=== PATIENT | female | born 1960 | race Caucasian/White ===

== ENCOUNTER 2017-08-06 19:14 | Emergency (ER) | payer BC, OTHER ==
[~2017-08-06] VITALS: Ht 170.2 cm; Wt 136.6 kg
[~2017-08-06 19:14] MED LIST: ASCO500T16 PO; ATV5 PO; CALCIUM + D600 M1 PO; CHOL100010 PO; IBUP200T52 PO; MULT-506 PO; OMEG-112 PO; RSTOPS OP
[2017-08-06 19:16] VITALS: TEMP 37; Ht 170.2 cm; Wt 136.6 kg
[2017-08-06 20:15] LABS: BASO % 0.3 %; BASO ABS # 0.03 K/uL (0-0.2); COMPLETE YES; EOS % 2.4 %; HEMATOCRIT 46.4 % (37-47); IG% 0.2 %; LYMPH % 23.9 %; MEAN CELL VOLUME 90.6 fL (80-100); MEAN CORPUSCULAR HEMOGLOBIN 30.5 pg (25-34); MEAN CORPUSCULAR HGB CONC 33.6 g/dl (32-36); MEAN PLATELET VOLUME 9.4 fL (7.4-10.4); MONO % 6.5 %; NEUT % 66.7 %; PLATELET COUNT 308 K/uL (130-400); RED BLOOD COUNT 5.12 M/uL (4.2-5.4); WHITE BLOOD COUNT 9.64 K/uL (4.8-10.8)
--- NOTE | 2017-08-06 20:15 | DIAGNOSTIC IMAGING REPORT ---
CHEST ONE VIEW PORTABLE CLINICAL HISTORY: Atypical chest pain COMPARISON STUDY: May 24, 2010 FINDINGS: The cardiac and mediastinal contours are normal. There is no evidence of focal pulmonary consolidation. There is no evidence of failure. No pleural effusions are visualized.[ IMPRESSION: No active disease in the chest. Electronically signed by: Gaurav Pittman M.D. 08/06/2017 8:13 PM Dictated Date/Time: 08/06/2017 8:13 PM
[2017-08-06] MEDS ORDERED: ATV5X PO (20:20)
[2017-08-06] MEDS ORDERED: CYCL0.052 OPB (20:20)
[2017-08-06] MEDS ORDERED: ASPI81TA28 PO (20:21)
[2017-08-06] MEDS ORDERED: CLBCR60 TOP (20:21)
[2017-08-06 20:26] LABS: POINT OF CARE TROPONIN I < 0.030 ng/ml (0-0.045)
[2017-08-06 20:28] LABS: PARTIAL THROMBOPLASTIN RATIO 0.9; PROTHROMBIN TIME (PATIENT) 10.4 SECONDS (9.0-12.0)
[2017-08-06 20:34] LABS: BUN/CREATININE RATIO 20.6 (10-20); CALCIUM 9.3 mg/dl (8.5-10.1); CREATININE 0.9 mg/dl (0.60-1.20); POTASSIUM 3.8 mmol/L (3.5-5.1)
[2017-08-06 20:36] LABS: ALB/GLOB RATIO 0.9 (0.9-2)
[2017-08-06] MEDS ORDERED: OPTIRAY 320 IV PRN (20:45)
[2017-08-06 21:15] VITALS: BP 149/89; PULSE 90; O2SAT 95
--- NOTE | 2017-08-06 21:18 | DIAGNOSTIC IMAGING REPORT ---
CT ANGIOGRAM OF THE CHEST CLINICAL HISTORY: Atypical chest pain COMPARISON STUDY: 03/01/2010 TECHNIQUE: Following the IV administration of 120 mL of Optiray-320, CT angiogram of the thorax was performed from the thoracic inlet to the lung bases utilizing the pulmonary embolus protocol. Images are reviewed in the axial, sagittal, and coronal planes. IV contrast was administered without complication. MIP imaging was performed. A dose lowering technique was utilized adhering to the principles of ALARA. CT DOSE: 745.70 mGy.cm FINDINGS: There is an 11 mm left lobe thyroid nodule. No pathologically enlarged axillary mediastinal or hilar lymph nodes were visualized. There was no evidence of thoracic aortic dilatation. There were no pulmonary artery filling defects to indicate acute pulmonary embolism. No pleural effusions are visualized. There is no evidence of focal pulmonary consolidation. There are few tiny granulomatous calcifications present. IMPRESSION: 1. No evidence of acute pulmonary embolism 2. No evidence of pathologic adenopathy 3. No evidence of focal pulmonary consolidation 4. 11 mm left lobe thyroid nodule Electronically signed by: Gaurav Pittman M.D. 08/06/2017 9:16 PM Dictated Date/Time: 08/06/2017 9:13 PM
--- NOTE | 2017-08-06 21:33 | EMERGENCY ROOM VISIT NOTE ---
History First contact with patient: 19:31 Chief Complaint: CHEST PAIN Stated Complaint: CHEST PAIN,COUGH Nursing Triage Summary: Pt states cough for about a year, now having pain with coughing and deep breaths, Lungs CTA, pain a 7 out of 10 with coughing and deep breaths, abd obese, positve pulses History of Present Illness The patient is a 57 year old female who presents to the Emergency Room with complaints of right-sided rib/back pain. The patient states that she has had pain in her right side for the past one month. She states that when she takes a deep breath, it makes her cough. The pain radiates from the right back into the right flank. She also has had a burning sensation in the right side of her chest this week. She denies shortness of breath, but does state it is difficult to take a deep breath. She saw her primary care provider marlene and they recommended that she come here to rule out a pulmonary embolism. She denies any history of blood clots. She is not a smoker. She denies any hormone replacement. She denies recent travel. She has had some cramping in both of the legs, but denies any unilateral leg pain/swelling. She rates her overall discomfort a 6/10. She denies any abdominal pain, nausea, vomiting or fevers. Review of Systems A complete 10 point review of systems was reviewed with the patient with pertinent positives and negatives as per history of present illness. All else were negative. Social History Smoking Status: Never Smoker Current/Historical Medications Scheduled , 600 MG PO QAM Aspirin (Aspirin Ec), 81 MG PO HS Cholecalciferol (Vitamin D), 1,000 INTER.UNIT PO QAM Clobetasol Propionate (Clobetasol Propionate), 1 DOSE TOP HS Cyclosporine (Ophth) (Restasis), 1 DROP OPB BID Ibuprofen (Advil), 1 TAB PO HS Lorazepam (Lorazepam), 0.5 MG PO HS Multivitamin (Multivitamin), 1 TAB PO QAM Physical Exam Vital Signs Date Time Temp Pulse Resp B/P (MAP) Pulse Ox O2 Delivery O2 Flow Rate FiO2 08/06/17 21:15 90 18 149/89 95 Room Air 08/06/17 19:42 136/76 08/06/17 19:34 96 08/06/17 19:26 96 18 162/76 96 Room Air 08/06/17 19:26 Room Air 08/06/17 19:16 37.0 92 18 177/82 94 Room Air Physical Exam VITALS: Vitals are noted on the nurse's note and reviewed by myself. Vital signs stable. GENERAL: This is a 57-year-old female, in no acute distress, nondiaphoretic, well-developed well-nourished. SKIN: No rashes noted. HEENT: Normocephalic. PERRLA. Mucous membranes moist. Neck is supple without nuchal rigidity. HEART: Regular rate and rhythm without murmurs gallops or rubs. LUNGS: Clear to auscultation bilaterally without wheezes, rales or rhonchi. No retractions or accessory muscle use. ABDOMEN: Positive bowel sounds x 4. No tenderness to palpation. NEURO: Patient was alert and oriented to person place and time. Medical Decision & Procedures ER Provider Diagnostic Interpretation: CHEST ONE VIEW PORTABLE FINDINGS: The cardiac and mediastinal contours are normal. There is no evidence of focal pulmonary consolidation. There is no evidence of failure. No pleural effusions are visualized.[ IMPRESSION: No active disease in the chest. CT ANGIOGRAM OF THE CHEST FINDINGS: There is an 11 mm left lobe thyroid nodule. No pathologically enlarged axillary mediastinal or hilar lymph nodes were visualized. There was no evidence of thoracic aortic dilatation. There were no pulmonary artery filling defects to indicate acute pulmonary embolism. No pleural effusions are visualized. There is no evidence of focal pulmonary consolidation. There are few tiny granulomatous calcifications present. IMPRESSION: 1. No evidence of acute pulmonary embolism 2. No evidence of pathologic adenopathy 3. No evidence of focal pulmonary consolidation 4. 11 mm left lobe thyroid nodule Laboratory Results 08/06/17 20:00 Red Blood Count 5.12, Mean Corpuscular Volume 90.6, Mean Corpuscular Hemoglobin 30.5, Mean Corpuscular Hemoglobin Concent 33.6, Mean Platelet Volume 9.4, Neutrophils (%) (Auto) 66.7, Lymphocytes (%) (Auto) 23.9, Monocytes (%) (Auto) 6.5, Eosinophils (%) (Auto) 2.4, Basophils (%) (Auto) 0.3, Neutrophils # (Auto) 6.43, Lymphocytes # (Auto) 2.30, Monocytes # (Auto) 0.63, Eosinophils # (Auto) 0.23, Basophils # (Auto) 0.03 08/06/17 20:00 Test 08/06/17 20:00 08/06/17 20:08 White Blood Count 9.64 K/uL (4.8-10.8) Red Blood Count 5.12 M/uL (4.2-5.4) Hemoglobin 15.6 g/dL (12.0-16.0) Hematocrit 46.4 % (37-47) Mean Corpuscular Volume 90.6 fL (80-100) Mean Corpuscular Hemoglobin 30.5 pg (25-34) Mean Corpuscular Hemoglobin Concent 33.6 g/dl (32-36) Platelet Count 308 K/uL (130-400) Mean Platelet Volume 9.4 fL (7.4-10.4) Neutrophils (%) (Auto) 66.7 % Lymphocytes (%) (Auto) 23.9 % Monocytes (%) (Auto) 6.5 % Eosinophils (%) (Auto) 2.4 % Basophils (%) (Auto) 0.3 % Neutrophils # (Auto) 6.43 K/uL (1.4-6.5) Lymphocytes # (Auto) 2.30 K/uL (1.2-3.4) Monocytes # (Auto) 0.63 K/uL (0.11-0.59) Eosinophils # (Auto) 0.23 K/uL (0-0.5) Basophils # (Auto) 0.03 K/uL (0-0.2) RDW Standard Deviation 44.1 fL (36.4-46.3) RDW Coefficient of Variation 13.3 % (11.5-14.5) Immature Granulocyte % (Auto) 0.2 % Immature Granulocyte # (Auto) 0.02 K/uL (0.00-0.02) Prothrombin Time 10.4 SECONDS (9.0-12.0) Prothromb Time International Ratio 1.0 (0.9-1.1) Activated Partial Thromboplast Time 24.1 SECONDS (21.0-31.0) Partial Thromboplastin Ratio 0.9 Anion Gap 6.0 mmol/L (3-11) Est Creatinine Clear Calc Drug Dose 97.3 ml/min Estimated GFR () 81.1 Estimated GFR (Non- 70.0 BUN/Creatinine Ratio 20.6 (10-20) Calcium Level 9.3 mg/dl (8.5-10.1) Total Bilirubin 0.8 mg/dl (0.2-1) Aspartate Amino Transf (AST/SGOT) 63 U/L (15-37) Alanine Aminotransferase (ALT/SGPT) 111 U/L (12-78) Alkaline Phosphatase 117 U/L (45-117) Total Protein 7.5 gm/dl (6.4-8.2) Albumin 3.5 gm/dl (3.4-5.0) Globulin 4.0 gm/dl (2.5-4.0) Albumin/Globulin Ratio 0.9 (0.9-2) Bedside D-Dimer > 450 ng/mlFEU (0-450) Bedside Troponin I < 0.030 ng/ml (0-0.045) ECG Indication: chest pain Rate (beats per minute): 90 Rhythm: normal sinus Findings: no acute ischemic change, no ectopy ED Course The patient was evaluated as above. Labs were drawn and IV access was obtained. CT chest was performed and read by radiology as above. Patient was reevaluated and findings were discussed. Discharge instructions were reviewed with the patient. The patient verbalized understanding of my assessment and treatment plan and was discharged home in good condition. Medical Decision Differential diagnosis includes acute coronary syndrome, pulmonary embolism, pneumothorax, pericarditis, myocarditis, endocarditis, anxiety, musculoskeletal pain, GERD, costochondritis, pneumonia, among others. The patient is a 57-year-old female who presents today complaining of right sided rib/chest pain for the past one year. Labs revealed no leukocytosis, anemia, or concerning electrolyte abnormalities. D-dimer was elevated, and CT of the chest was ordered. This was read by radiology with no PEs identified. Troponin was not elevated. EKG was unremarkable. Patient was referred back to her PCP for further evaluation of her rib pain. She was agreeable to the treatment plan. Based on the patient's presentation and work up, I feel the patient is stable for outpatient treatment. The patient was educated to return to the emergency department for any worsening of their current condition or new/concerning symptoms. She will follow up with her PCP. Medication Reconcilliation Current Medication List: was personally reviewed by me Blood Pressure Screening Patient's blood pressure: Elevated blood pressure Blood pressure disposition: Elevated BP felt to be situational Impression Primary Impression: Rib pain on right side Departure Information Dispostion Home / Self-Care Condition GOOD Referrals Parish Perez PA-C (PCP) Patient Instructions My [facility] [place] Additional Instructions CT showed no evidence of a blood clot in the lungs. For pain control, you can use the following [id number] medicines (if >12 yo): - Regular strength (325mg/tab) Tylenol (acetaminophen) 2 tabs every 4-6 hours as needed. Do not exceed 12 tablets in a 24 hour period. Avoid taking more than 4 grams (4000 mg) of Tylenol per day. This includes any other sources of acetaminophen you may take on a regular basis. - Regular strength (200 mg/tab) Advil (ibuprofen) 1-2 tabs every 4-6 hours as needed. Do not exceed a dose of 3200 mg per day. You may use [id number] medications for the cough. Follow-up with your primary care provider. Call in the morning for an appointment. Return to the emergency department with any worsening or new/concerning symptoms.
== END 2017-08-06 21:50 | disposition home or self-care (01) ==
LOC: C.EDB 19:16 → C.EDC 21:50
DX: R07.81 Pleurodynia (principal); Z79.82 Long term (current) use of aspirin

== ENCOUNTER 2022-07-25 19:20 | Inpatient (IN) ==
[2022-07-25] MEDS ORDERED: MoRPHine SULFATE 4 MG/ML 1 ML CARP\\VIAL IV STA ×2 (22:29→22:30)
[2022-07-25] MEDS ORDERED: LORazepam 2 MG/1 ML VIAL IV STA (22:42)
[2022-07-25] MEDS ORDERED: KETOROLAC TROMETHAMINE 15 MG/ML VIAL IV STA (22:42)
[2022-07-25 23:14] LABS: Alanine Aminotransferase 43 U/L (7-52); Albumin Globulin Ratio 1.4 (0.9-2); Albumin Level 3.9 gm/dl (3.4-5.0); Alkaline Phosphatase 97 U/L (34-104); Anion Gap 9 (3-11); Aspartate Aminotransferase 22 U/L (13-39); BUN Creatinine Ratio 40.6 (10-20); Bilirubin,Total 0.8 mg/dl (0.2-1.0); Blood Urea Nitrogen 28 mg/dl (6-23); Calcium 9.4 mg/dl (8.5-10.1); Carbon Dioxide 27 mmol/L (21-32); Chloride 105 mmol/L (98-107); Est GFR (African American) 106.6 ml/min; Globulin 2.7 gm/dl (2.5-4.0); Glucose 80 mg/dl (70-99(Fasting)); Potassium 4.2 mmol/L (3.5-5.1); Sodium 141 mmol/L (136-145); Total Protein 6.6 gm/dl (6.0-8.3)
[2022-07-25 23:21] LABS: Hematocrit (blood only) 45.8 % (34.1-44.9); Hemoglobin 14.4 g/dl (12.0-16.0); Lymphocytes % (auto) 20.4 %; Mean Corpuscular Hemoglobin 29.9 pg (25.0-34.0); Mean Corpuscular Hgb Conc 31.4 g/dL (32.0-36.0); Mean Platelet Volume 9.3 fL (9.4-12.3); Monocytes % (auto) 9.9 %; Neutrophils % (auto) 68.4 %; Platelet Count 265 K/uL (130-400); RDW Coefficient of Variation 13.2 % (11.5-14.5); RDW Standard Deviation 46.2 fL (36.4-46.3); Red Blood Count 4.82 M/uL (3.93-5.22); White Blood Count 12.26 K/ul (4.8-10.8)
[2022-07-25 23:22] LABS: Basophils # (auto) 0.02 K/uL (0-0.2); Basophils % (auto) 0.2 %; Eosinophils # (auto) 0.06 K/uL (0-0.50); Eosinophils % (auto) 0.5 %; Immature Granulocytes # (auto) 0.07 K/uL (0.00-0.02); Immature Granulocytes % (auto) 0.6 %; Monocytes # (auto) 1.21 K/uL (0.24-0.82)
--- NOTE | 2022-07-25 23:24 | Emergency Department Note ---
History of Present Illness General Chief complaint: Back Injury/Pain Stated complaint: BACK PAIN Time Seen by Provider: 07/25/22 22:27 History of Present Illness Maximum Pain Intensity: 8 This 62-year-old presents to the ER complaining of worsening low back pain that radiate down her right leg that feels weak Location: Low back Quality: Severe Severity: Severe Duration: Past few weeks Timing: Started few weeks ago Context: Symptoms got much worse and patient came in Modifying factors: better with rest; worse with activity Patient states her right leg now feels weak. She has difficulty wiping her bottom. Patient denies loss of bowel bladder control, saddle esthesia, fever, chills, IV drug abuse. No recent MRI. She seen Dr. Cool once. She seen pain management for SI problems. Home Medications Medication Instructions Recorded Confirmed Type ascorbic acid (vitamin C) 500 mg 1 cap PO .TAKE 1 CAPSULE DAILY. 06/12/20 08/14/20 History capsule calcium carbonate 600 mg calcium mg PO .TAKE 1 TABLET TWICE DAILY. 06/12/20 08/14/20 History (1,500 mg) tablet cholecalciferol (vitamin D3) 125 1 PO .TAKE 1 CAPSULE DAILY. 06/12/20 08/14/20 History mcg (5,000 unit) capsule cyclosporine 0.05 % eye drops in a 1 ophthalmic (eye) .INSTILL 1 DROP 06/12/20 08/14/20 History dropperette IN EACH EYE TWICE DAILY. docusate sodium 100 mg tablet mg PO .TAKE 1 TABLET DAILY 06/12/20 08/14/20 History DIRECTED. lorazepam 0.5 mg tablet mg PO .TAKE ONE TABLET BY MOUTH AT 06/12/20 08/14/20 History BEDTIME aspirin 81 mg tablet,delayed 81 mg PO DAILY 08/14/20 08/14/20 History release doxycycline hyclate 100 mg capsule 100 mg PO DAILY #30 caps 08/14/20 08/14/20 Rx metronidazole 0.75 % topical cream 1 applic topical BID #45 grams 08/14/20 08/14/20 Rx multivitamin (Daily Multi-Vitamin 1 tab PO DAILY 08/14/20 08/14/20 History tablet) cyclobenzaprine 10 mg tablet 10 mg PO TID PRN muscle spasm #20 07/23/22 Rx tabs hydrocodone 5 mg-acetaminophen 325 1 - 2 tab PO Q6H PRN pain #24 tabs 07/23/22 Rx mg tablet Allergies Allergy/AdvReac Type Severity Reaction Status Date / Time adhesive Allergy Mild RASH Verified 08/14/20 09:48 erythromycin base Allergy Mild RASH Verified 08/14/20 09:48 codeine Allergy Unknown WELTS AND Verified 08/14/20 09:48 ITCHING latex Allergy Unknown WELTS, Verified 08/14/20 09:48 BLISTERS tetanus toxoid, adsorbed Allergy Unknown CELLULITIS Verified 08/14/20 09:48 AND HYPERTENSION SHINGLES VACCINE Allergy Unknown CELLULITIS Uncoded 06/12/20 09:55 AND HYPERTENSION Past Med/Surg History Medical History (Updated 07/26/22 @ 03:16 by Marissa Minor PA-C) Diverticulitis GERD (gastroesophageal reflux disease) Meniere's disease Morbid obesity Osteoporosis Surgical History (Updated 07/25/22 @ 23:22 by Marissa Minor PA-C) No pertinent past surgical history Social History Smoking Status: Never smoker Preferred Language: Setswana Feels Safe at Home: Yes Review of Systems A total of 10 systems reviewed and were otherwise negative Physical Exam Vital Signs Vital Signs - 24 hr 07/25/22 19:27 07/25/22 20:45 07/25/22 22:45 Temperature 36.8 C Temperature Source Oral Pulse Rate 83 Pulse Rate [Apical] 72 81 Pulse Rhythm [Apical] Respiratory Rate 20 18 18 Respiratory Effort / Characteristics Non-Labored Spontaneous Non-Labored Spontaneous Respiratory Depth Normal Normal Respiratory Pattern Regular Regular Blood Pressure 210/91 H Blood Pressure [Right Arm] 159/83 H 167/91 H Blood Pressure Mean 130 Blood Pressure Mean [Right Arm] 108 116 Blood Pressure Position Semi-fowlers Blood Pressure Position [Right Arm] Semi-fowlers Pulse Oximetry 95 96 93 Oxygen Delivery Method Room Air Room Air Room Air Oxygen Flow Rate Sepsis Recent Fever Within 48 Hours No Sepsis New/Unexplained Change in Mental Status N/A Sepsis Action Taken by Nursing No Action Required 07/26/22 00:45 07/26/22 02:24 Temperature Temperature Source Pulse Rate Pulse Rate [Apical] 76 76 Pulse Rhythm [Apical] Regular Respiratory Rate 16 20 Respiratory Effort / Characteristics Non-Labored Spontaneous Non-Labored Spontaneous Respiratory Depth Normal Normal Respiratory Pattern Regular Regular Blood Pressure Blood Pressure [Right Arm] 174/84 H 146/72 H Blood Pressure Mean Blood Pressure Mean [Right Arm] 114 96 Blood Pressure Position Blood Pressure Position [Right Arm] Semi-fowlers Pulse Oximetry 95 98 Oxygen Delivery Method Nasal Cannula Nasal Cannula Oxygen Flow Rate 2 2 Sepsis Recent Fever Within 48 Hours Sepsis New/Unexplained Change in Mental Status Sepsis Action Taken by Nursing VITALS: Vitals are noted on the nurse's note and reviewed by myself. Vital signs stable. GENERAL: Pleasant patient who appears in pain, in no acute distress, nondiaphoretic, well-developed well-nourished. SKIN: The skin was without rashes, erythema, edema, or bruising. There is no tenting of the skin. Capillary reflex less than 2 seconds. HEAD: Normocephalic atraumatic. EARS: External auditory canals clear, EYES: Pupils equal round and reactive to light and accommodation. Conjunctivae without injection, sclerae without icterus. Extraocular movements intact. NOSE: Patent, turbinates without inflammation or discharge. MOUTH: Mucous membranes moist. Pharynx without erythema or exudate. Uvula midline. Airway patent. Tongue does not deviate. NECK: Supple without nuchal rigidity. No lymphadenopathy. No thyromegaly. Cervical spine is nontender. No JVD. HEART: Regular rate and rhythm without murmurs gallops or rubs. LUNGS: Clear to auscultation bilaterally without wheezes, rales or rhonchi. No retractions or accessory muscle use. ABDOMEN: Positive bowel sounds x 4. Normal tympanic percussion. Soft, nonten darline, without masses or organomegaly. Alanis sign negative. No guarding or rebound tenderness. No CVA tenderness MUSCULOSKELETAL: No muscle atrophy, erythema, or edema noted. No thoracic or lumbar tenderness. Positive straight leg raise on the right. Negative on the left. Patellar reflexes intact. Patient can plantarflex and dorsiflex. NEURO: Patient was alert and oriented to person place and time. Normal sensation to light and sharp touch. No focal neurological deficits. Course Administered Medications Discontinued Medications Ketorolac Tromethamine (Ketorolac Tromethamine 15 Mg/Ml Vial) 10 mg IV NOW STA Stop: 07/25/22 22:43 Last Admin: 07/25/22 23:17 Dose: 10 mg Documented By: JESUS ALBERTO Lorazepam (Lorazepam 2 Mg/1 Ml Vial) 1 mg IV NOW STA; Protocol Stop: 07/25/22 22:43 Last Admin: 07/25/22 23:18 Dose: 1 mg Documented By: JESUS ALBERTO Morphine Sulfate (Morphine Sulfate 4 Mg/Ml 1 Ml Carp\Vial) 4 mg IV NOW STA Stop: 07/25/22 22:30 Last Admin: 07/25/22 22:34 Dose: 4 mg Documented By: JESUS ALBERTO Morphine Sulfate (Morphine Sulfate 4 Mg/Ml 1 Ml Carp\Vial) 4 mg IV NOW STA Stop: 07/25/22 22:31 Last Admin: 07/25/22 22:35 Dose: Not Given Documented By: JESUS ALBERTO Morphine Sulfate (Morphine Sulfate 4 Mg/Ml 1 Ml Carp\Vial) 4 mg IV NOW STA Stop: 07/26/22 01:05 Last Admin: 07/26/22 01:07 Dose: 4 mg Documented By: JESUS ALBERTO Medical Decision Making Medical Records Attestation: I reviewed the patient's medical records. Home Medications Current Medication List: was personally reviewed by me Laboratory Data Attestation: I reviewed the patient's lab results. Result diagrams: 07/25/22 23:09 07/25/22 19:30 Lab Results 07/25/22 07/25/22 07/25/22 Range/Units 19:30 19:30 23:09 WBC Cancelled 12.26 H RBC Cancelled 4.82 Hgb Cancelled 14.4 Hct Cancelled 45.8 H MCV Cancelled 95.0 MCH Cancelled 29.9 MCHC Cancelled 31.4 L RDW Std Deviation Cancelled 46.2 RDW Coeff of Jose Antonio Cancelled 13.2 Plt Count Cancelled 265 MPV Cancelled 9.3 L Immature Gran % (Auto) Cancelled 0.6 Neut % (Auto) Cancelled 68.4 Lymph % (Auto) Cancelled 20.4 [place] % (Auto) Cancelled 9.9 Eos % (Auto) Cancelled 0.5 Baso % (Auto) Cancelled 0.2 Neut # (Auto) Cancelled 8.40 H Lymph # (Auto) Cancelled 2.50 [place] # (Auto) Cancelled 1.21 H Eos # (Auto) Cancelled 0.06 Baso # (Auto) Cancelled 0.02 Immature Gran # (Auto) Cancelled 0.07 H Absolute Nucleated RBC Cancelled Nucleated RBC % (auto) Cancelled Neutrophils % (Manual) Cancelled Band Neutrophils % Cancelled Lymphocytes % (Manual) Cancelled Prolymphocyte % Cancelled Reactive Lymphs % (Man) Cancelled Monocytes % (Manual) Cancelled Eosinophils % (Manual) Cancelled Basophils % (Manual) Cancelled Metamyelocytes % (Man) Cancelled Myelocytes % (Man) Cancelled Promyelocytes % (Man) Cancelled Blast Cells % (Manual) Cancelled Plasma Cell % (Manual) Cancelled Other Cells % Cancelled Nucleated RBC % Cancelled Neutrophils # (Manual) Cancelled Band Neutrophils # Cancelled Total Absolute Neuts Cancelled Lymphocytes # (Manual) Cancelled Prolymphocyte # Cancelled Reactive Lymphs # Cancelled Total Abs Lymphocytes Cancelled Monocytes # (Manual) Cancelled Eosinophils # (Manual) Cancelled Basophils # (Manual) Cancelled Metamyelocytes # (Man) Cancelled Myelocytes # (Manual) Cancelled Promyelocytes # (Man) Cancelled Blast Cells # (Man) Cancelled Plasma Cell # (Manual) Cancelled Other Cells # Cancelled Nucleated RBCs # (Man) Cancelled Hypersegmented Neuts Cancelled Hyposegmented Neuts Cancelled Hypogranular Neuts Cancelled Large Granular Lymphs Cancelled # Lrg Granular Lymphs Cancelled Hairy Cells Cancelled Smudge Cells Cancelled Toxic Granulation Cancelled Toxic Vacuolation Cancelled Dohle Bodies Cancelled Dylon Rods Cancelled Platelet Estimate Cancelled Hypogranular Platelets Cancelled Clumped Platelets Cancelled Giant Platelets Cancelled Platelet Satelliting Cancelled RBC Morphology Cancelled Polychromasia Cancelled Hypochromasia Cancelled Poikilocytosis Cancelled Basophilic Stippling Cancelled Anisocytosis Cancelled Microcytosis Cancelled Macrocytosis Cancelled Spherocytes Cancelled Pappenheimer Bodies Cancelled Sickle Cells Cancelled Target Cells Cancelled Tear Drop Cells Cancelled Ovalocytes Cancelled Stomatocytes Cancelled [place] Bodies Cancelled Echinocytes Cancelled Acanthocytes (Spur) Cancelled Rouleaux Cancelled RBC Agglutinates Cancelled Schistocytes Cancelled [place] Cell Cancelled Sodium 141 (136-145) mmol/L Potassium 4.2 (3.5-5.1) mmol/L Chloride 105 (98-107) mmol/L Carbon Dioxide 27 (21-32) mmol/L Anion Gap 9 (3-11) BUN 28 H (6-23) mg/dl Creatinine 0.69 (0.6-1.2) mg/dl Est Cr Clr Drug Dosing Not Reportable Est GFR ( Amer) 106.6 ml/min Est GFR (Non-Af Amer) 92.0 ml/min BUN/Creatinine Ratio 40.6 H (10-20) Glucose 80 (70-99(Fasting)) mg/dl Calcium 9.4 (8.5-10.1) mg/dl Total Bilirubin 0.8 (0.2-1.0) mg/dl AST 22 (13-39) U/L ALT 43 (7-52) U/L Alkaline Phosphatase 97 (34-104) U/L Total Protein 6.6 (6.0-8.3) gm/dl Albumin 3.9 (3.4-5.0) gm/dl Globulin 2.7 (2.5-4.0) gm/dl Albumin/Globulin Ratio 1.4 (0.9-2) Blood Parasites ID Cancelled Imaging Data Attestation: I personally reviewed and interpreted this imaging study as follows: MDM Narrative Prior records/ancillary studies reviewed. Triage Nursing notes reviewed. Additional history obtained from family. The patient's history was concerning for back pain. Differential diagnosis: Etiologies such as musculoskeletal, disc herniation, fracture, aortic disease, metastatic disease, cord compression, discitis, infection, renal colic, gastrointestinal, acute exacerbation of chronic back pain, sciatica, cauda equina, as well as others were entertained. Physical findings: As above. No focal neurologic findings noted. ER treatment provided: Morphine, Ativan, Tylenol, Toradol On reassessment the patient felt better. Diagnostics interpreted by me: The labs revealed leukocytosis most likely from prednisone use Imaging studies: MRI L SPINE : Acute moderate L2 compression fracture with a small amount of prevertebral blood. Chronic minimal L1 compression fracture. No malalignment. Minimal degenerative changes of the spine without significant stenosis. No abnormal spinal cord signal. Radiologist: Evy Wilkinson MD Consultation: A consultation was placed with hospitalist. The case was discussed and diagnostics were reviewed. They will evaluate for possible admission. This appears to be consistent with compression fracture with intractable back pain. Patient's received multiple rounds of pain meds. She still moderate amount of pain. Medicine is consulted. She will be evaluated for possible admission. By the evaluation outlined above emergent etiologies such as aortic disease, metastatic disease, infection, renal colic, gastrointestinal, cord compression, cauda equina, as well as others were deemed relatively unlikely. The pt informed about the findings as listed above. All questions were answered and pleased with the treatment. The chart was completed utilizing MD[employer]Voice Speech voice recognition software. Grammatical errors, random word insertions, pronoun errors, and incomplete sentences are an occassional consequence of this system due to software limitations, ambient noise, and hardware issues. Any formal questions or concerns about the content, text, or information contained within the body of this dictation should be directly addressed to the physician assistant department manager for clarification. Impression & Plan Closed compression fracture of L2 vertebra, Intractable low back pain Discharge Plan Visit Data Chief Complaint: Back Injury/Pain Stated Complaint: BACK PAIN ED Provider: Mir Rendon ED Midlevel Provider: Marissa Minor Discharge Problem: Closed compression fracture of L2 vertebra, Intractable low back pain Patient Disposition: Being Evaluated by Hospitalist Condition: Good Forms Stand Alone Forms: [facility] [email or web address] Prescriptions Prescriptions: No Action multivitamin [Daily Multi-Vitamin] Tablet 1 tab PO DAILY aspirin 81 mg tablet,delayed release (DR/EC) 81 mg PO DAILY metronidazole 0.75 % cream 1 applic TOP BID Qty: 45 2RF Rx Instructions: Apply to face twice daily as directed. doxycycline hyclate 100 mg capsule 100 mg PO DAILY Qty: 30 2RF Rx Instructions: Take 1 pill once daily with a glass of water. Remain upright for 45 minutes after taking. calcium carbonate 600 mg calcium (1,500 mg) tablet PO .TAKE 1 TABLET TWICE DAILY. lorazepam 0.5 mg tablet PO .TAKE ONE TABLET BY MOUTH AT BEDTIME Restasis 0.05 % dropperette 1 OP .INSTILL 1 DROP IN EACH EYE TWICE DAILY. ascorbic acid (vitamin C) 500 mg capsule 1 cap PO .TAKE 1 CAPSULE DAILY. cholecalciferol (vitamin D3) 125 mcg (5,000 unit) capsule 1 PO .TAKE 1 CAPSULE DAILY. docusate sodium 100 mg tablet PO .TAKE 1 TABLET DAILY DIRECTED. cyclobenzaprine 10 mg tablet 10 mg PO TID PRN (Reason: muscle spasm) Qty: 20 0RF hydrocodone-acetaminophen 5-325 mg tablet 1 - 2 tab PO Q6H PRN (Reason: pain) Qty: 24 0RF Rx Instructions: Initial Treatment Referrals Referrals: Parish Perez [Primary Care Provider] -
[2022-07-26] MEDS ORDERED: MoRPHine SULFATE 4 MG/ML 1 ML CARP\\VIAL IV STA (01:04)
[2022-07-26] MEDS ORDERED: POLYETHYLENE (MIRALAX) 17 GM PACK PO PRN (03:23)
[2022-07-26] MEDS ORDERED: MoRPHine SULFATE 4 MG/ML 1 ML CARP\\VIAL IV PRN (03:31)
[2022-07-26] MEDS ORDERED: NAPROXEN 375 MG TAB PO PRN ×2 (03:31→03:52)
[2022-07-26] MEDS ORDERED: CYCLOBENZAPRINE HCL 10 MG TAB PO STA (03:50)
--- NOTE | 2022-07-26 03:57 | History & Physical Report ---
Date of Service July 26, 2022 Assessment & Plan (1) Intractable low back pain: Plan: - likely due to exacerbation of low back pain and muscle spasm/sprain - could include spinal involvement as patient endorses some shooting pain but only to mid posterior thigh and now weakness, numbness, tingling, saddle anesthesia or bowel/bladder incontinence - MRI lumbar spine done, read pending - multimodal pain control - PT/OT - ortho consult pending MRI read (2) Morbid obesity: Plan: - noted (3) Meniere's disease: Plan: - reports taking 0.5mg ativan occasionally at night to sleep - will continue (4) Leukocytosis: Plan: - likely stress response vs recent steroid use - no signs or symptoms of infection at this time - will monitor Plan DVT ppx: Lovenox Code Status: Full Code Dispo: med/surg Kenny Trimble MD [facility] Medicine Admission and Anticipated Discharge Date Admission Date: 07/26/2022 History of Present Illness Chief Complaint: low back pain Primary Care Provider: Parish Perez The patient is a 62 year old woman with pmh low back pain who presents with exacerbation of her chronic low back pain. Her symptoms started about 10 days ago. She had gone on a long walk with her , then states that she did some cleaning and moving furniture around, then woke up with pain the next day. She does report a history of low back pain a couple of years ago. She had an MRI, saw Dr. Cool and ultimately saw Dr. Win, and had had SI injections in April 2019, and has been completely pain-free until 10 days ago. She notes midline pain in the low back, below her belt line and just above her gluteal cleft. It does radiate to her mid posterior thigh. She has been taking Tylenol, and ibuprofen, admittedly only about 200 mg a dose, but her symptoms are getting worse. She rates her pain a 10/10 currently. Her primary care provider started her on some prednisone 3 days ago, she has had a total of 3 doses. She has not seen significant change with this. She also has been seen by her chiropractor. She had some x-rays, but they would not adjust her due to her pain. She has tried ice which has helped, heat which made things worse, Epson salt gel, Voltaren gel, Salonpas patches and a natural muscle relaxer, all without relief. She denies any bowel or bladder incontinence or saddle anesthesias. No recent imaging of her back. There is no numbness, tingling or weakness radiating into the legs past the knee. She denied fevers or chills, n/v/d, abdominal pain, dysuria, cough, shortness of breath, chest pain. In the ED, vitals were unremarkable. Labs were significant for WBC 12. She was given pain mediation, MRI was done and she was admitted to medicine. Allergies Allergy/AdvReac Type Severity Reaction Status Date / Time adhesive Allergy Mild RASH Verified 08/14/20 09:48 erythromycin base Allergy Mild RASH Verified 08/14/20 09:48 codeine Allergy Unknown WELTS AND Verified 08/14/20 09:48 ITCHING latex Allergy Unknown WELTS, Verified 08/14/20 09:48 BLISTERS tetanus toxoid, adsorbed Allergy Unknown CELLULITIS Verified 08/14/20 09:48 AND HYPERTENSION SHINGLES VACCINE Allergy Unknown CELLULITIS Uncoded 06/12/20 09:55 AND HYPERTENSION Home Medications Medication Instructions Recorded Confirmed Type ascorbic acid (vitamin C) 500 mg 1 cap PO .TAKE 1 CAPSULE DAILY. 06/12/20 08/14/20 History capsule calcium carbonate 600 mg calcium mg PO .TAKE 1 TABLET TWICE DAILY. 06/12/20 08/14/20 History (1,500 mg) tablet cholecalciferol (vitamin D3) 125 1 PO .TAKE 1 CAPSULE DAILY. 06/12/20 08/14/20 History mcg (5,000 unit) capsule cyclosporine 0.05 % eye drops in a 1 ophthalmic (eye) .INSTILL 1 DROP 06/12/20 08/14/20 History dropperette IN EACH EYE TWICE DAILY. docusate sodium 100 mg tablet mg PO .TAKE 1 TABLET DAILY 06/12/20 08/14/20 History DIRECTED. lorazepam 0.5 mg tablet mg PO .TAKE ONE TABLET BY MOUTH AT 06/12/20 08/14/20 History BEDTIME aspirin 81 mg tablet,delayed 81 mg PO DAILY 08/14/20 08/14/20 History release doxycycline hyclate 100 mg capsule 100 mg PO DAILY #30 caps 08/14/20 08/14/20 Rx metronidazole 0.75 % topical cream 1 applic topical BID #45 grams 08/14/20 08/14/20 Rx multivitamin (Daily Multi-Vitamin 1 tab PO DAILY 08/14/20 08/14/20 History tablet) cyclobenzaprine 10 mg tablet 10 mg PO TID PRN muscle spasm #20 07/23/22 Rx tabs hydrocodone 5 mg-acetaminophen 325 1 - 2 tab PO Q6H PRN pain #24 tabs 07/23/22 Rx mg tablet Past Med/Surg History Medical History (Updated 07/26/22 @ 04:00 by Kenny Trimble MD) Diverticulitis GERD (gastroesophageal reflux disease) Meniere's disease Morbid obesity Osteoporosis Surgical History (Updated 07/25/22 @ 23:22 by Marissa Minor PA-C) No pertinent past surgical history Social History Smoking Status: Never smoker Preferred Language: Sinhala Feels Safe at Home: Yes Review of Systems Review of Systems: All systems reviewed & are unremarkable except as noted in Subjective Physical Exam Constitutional: WD/WN, vitals as above + acute distress (from pain) and + obese; not ill appearing Eyes: PERRL, conjunctivae normal, anicteric sclerae ENMT: external ear and nose normal, oropharynx normal Neck: trachea midline, no thyromegaly Respiratory: normal respiratory effort, lungs clear to auscultation Cardiovascular: RRR, no murmur, no edema Gastrointestinal (Abdomen): normal bowel sounds, soft, nontender, no hepatosplenomegaly Musculoskeletal: no cyanosis or clubbing, extremities motor strength 5/5 tenderness to palpation on right paraspinal musculature and superior aspect of right buttock. No spinal point tenderness - unable to perform straight leg test due to patient positioning and pain. Skin: no rashes, warm and dry Neurologic: patellar DTR's 2+ bilat, sensation intact and PERRL, EOMI, accommodation nl, no face palsy, no dysarthria Psychiatric: A+Ox3, euthymic affect Results & Data Results & Data ([facility]) Vital Signs (Past 12 Hours) Vital Signs Temp Pulse Pulse Resp BP BP Pulse Ox 07/26/22 03:37 74 20 146/72 H 96 07/26/22 02:24 76 20 146/72 H 98 07/26/22 00:45 76 16 174/84 H 95 07/25/22 22:45 81 18 167/91 H 93 07/25/22 20:45 72 18 159/83 H 96 07/25/22 19:27 36.8 C 83 20 210/91 H 95 O2 Del Method O2 Flow Rate 07/26/22 03:37 Nasal Cannula 2 07/26/22 02:24 Nasal Cannula 2 07/26/22 00:45 Nasal Cannula 2 07/25/22 22:45 Room Air 07/25/22 20:45 Room Air 07/25/22 19:27 Room Air Code Status & VTE Plan Code Status Full Code VTE Prophylaxis Plan VTE Prophylaxis will be ordered: Yes
[2022-07-26] MEDS: ACETAMINOPHEN 325 MG TAB PO PRN ×2 (05:41→10:40)
[2022-07-26] MEDS ORDERED: DICLOFENAC SOD 1% GEL 100 GM TUBE EXT PRN (06:00)
[2022-07-26] MEDS: Patient's HEIGHT &/or WEIGHT Needed SCH ×2 (06:50→07:16)
--- NOTE | 2022-07-26 06:59 | Magnetic Resonance Report ---
LUMBAR SPINE MRI HISTORY: severe pain w/ right leg weakness TECHNIQUE: Multiplanar multisequence MRI of the lumbar spine was performed without the use of contras t. COMPARISON: Lumbar spine radiograph 07/23/2022. FINDINGS: For the purpose of the report the L5-S1 disc space will be located on axial image 27 of 30. There is an old mild superior endplate compression deformity at L1. There is a 2.2 cm T12 vertebral b whitney hemangioma. The conus terminates at the L1-L2 disc space level. There is an acute mild to moderat e superior endplate compression fracture at L2 demonstrating up to 20% loss of height. There is mild paravertebral edema at this level. No subluxation or retropulsion identified. Mild facet degenerative changes within the lower lumbar spine. The visualized sacrum is intact. Disc spaces are preserved. A 1.4 cm hemangioma at L4. L1-L2: Small broad-based posterior disc bulge asymmetric to the left without significant central shantal l or neural foraminal narrowing. L2-L3: No significant central canal or neural foraminal narrowing. L3-L4: No significant central canal or neural foraminal narrowing. L4-L5: No significant central canal or neural foraminal narrowing. L5-S1: No significant central canal or neural foraminal narrowing. IMPRESSION: 1. An acute mild to moderate superior endplate compression fracture at L2 with mild surrounding parav ertebral edema. No retropulsion. 2. No significant central canal or neural foraminal narrowing. ACT 112: Negative or not required by law. Electronically signed by: James Piedra M.D. 07/26/2022 6:56 AM
[2022-07-26 07:47] LABS: Albumin Globulin Ratio 1.5 (0.9-2); Albumin Level 3.1 gm/dl (3.4-5.0); BUN Creatinine Ratio 38.2 (10-20); Calcium 8.3 mg/dl (8.5-10.1); Creatinine Clr Calc Pharmacy 122.9 ml/min; Est GFR (African American) 107.1 ml/min; Est GFR (Non-African American) 92.4 ml/min; Globulin 2.1 gm/dl (2.5-4.0); Total Protein 5.2 gm/dl (6.0-8.3)
[2022-07-26] MEDS: MoRPHine SULFATE 4 MG/ML 1 ML CARP\\VIAL IV PRN ×3 (09:10→20:08)
[2022-07-26] MEDS: DOCUSATE SODIUM 100 MG CAP PO SCH (09:14)
[2022-07-26] MEDS: ASPIRIN 81 MG ECTAB PO SCH (09:14)
[2022-07-26] MEDS: ENOXAPARIN INJ 40 MG/0.4 ML SYR SQ SCH ×2 (09:14→20:07)
[2022-07-26] MEDS: MULTIVITAMIN TAB PO SCH (09:14)
[2022-07-26] MEDS: CHOLECALCIFEROL 5,000 UNITS 125 MCG TAB PO SCH (09:14)
[2022-07-26] MEDS: CALCIUM 600MG + VIT D 400 IU TAB PO SCH ×2 (09:14→20:07)
--- NOTE | 2022-07-26 11:00 | Orthopedic Consultation ---
Date of Consultation July 26, 2022 Assessment & Plan (1) Closed compression fracture of L2 vertebra: At this time explained to the patient elected to go with light activity only allow few days of rest may help her significantly. She is not to lift more than 5 pounds. She may transfer to a chair and ambulate as tolerated. Unfortunately due to her body habitus of brace may not provide much relief. I did emphasize that if her symptoms of fail to improve the next few days she may ultimately be a candidate for kyphoplasty. We will order a brace in the event that it does provide some support. The concern is that the holiday and may not be available for several days. History of Present Illness Reason for Consultation: Back pain Attending Physician: Fior Anderson MD History of Present Illness This is a 62-year-old female who presents with significant bout of back pain its been progressive in nature. She does have evidence of an L2 compression fracture that is acute in nature. She denies any specific trauma fall or event but does note moving some furniture with her approximately 1 week ago. She denies any numbness or tingling in the legs. She does have some pain along the right lateral thigh consistent with trochanteric bursitis and pain along the IT band. Allergies Allergy/AdvReac Type Severity Reaction Status Date / Time adhesive Allergy Mild RASH Verified 08/14/20 09:48 erythromycin base Allergy Mild RASH Verified 08/14/20 09:48 codeine Allergy Unknown WELTS AND Verified 08/14/20 09:48 ITCHING latex Allergy Unknown WELTS, Verified 08/14/20 09:48 BLISTERS tetanus toxoid, adsorbed Allergy Unknown CELLULITIS Verified 08/14/20 09:48 AND HYPERTENSION SHINGLES VACCINE Allergy Unknown CELLULITIS Uncoded 06/12/20 09:55 AND HYPERTENSION Home Medications Medication Instructions Recorded Confirmed Type ascorbic acid (vitamin C) 500 mg 1 cap PO .TAKE 1 CAPSULE DAILY. 06/12/20 08/14/20 History capsule calcium carbonate 600 mg calcium mg PO .TAKE 1 TABLET TWICE DAILY. 06/12/20 08/14/20 History (1,500 mg) tablet cholecalciferol (vitamin D3) 125 1 PO .TAKE 1 CAPSULE DAILY. 06/12/20 08/14/20 History mcg (5,000 unit) capsule cyclosporine 0.05 % eye drops in a 1 ophthalmic (eye) .INSTILL 1 DROP 06/12/20 08/14/20 History dropperette IN EACH EYE TWICE DAILY. docusate sodium 100 mg tablet mg PO .TAKE 1 TABLET DAILY 06/12/20 08/14/20 History DIRECTED. lorazepam 0.5 mg tablet mg PO .TAKE ONE TABLET BY MOUTH AT 06/12/20 08/14/20 History BEDTIME aspirin 81 mg tablet,delayed 81 mg PO DAILY 08/14/20 08/14/20 History release doxycycline hyclate 100 mg capsule 100 mg PO DAILY #30 caps 08/14/20 08/14/20 Rx metronidazole 0.75 % topical cream 1 applic topical BID #45 grams 08/14/20 08/14/20 Rx multivitamin (Daily Multi-Vitamin 1 tab PO DAILY 08/14/20 08/14/20 History tablet) cyclobenzaprine 10 mg tablet 10 mg PO TID PRN muscle spasm #20 07/23/22 Rx tabs hydrocodone 5 mg-acetaminophen 325 1 - 2 tab PO Q6H PRN pain #24 tabs 07/23/22 Rx mg tablet Patient History Medical History (Updated 07/26/22 @ 04:00 by Kenny Trimble MD) Diverticulitis GERD (gastroesophageal reflux disease) Meniere's disease Morbid obesity Osteoporosis Surgical History (Updated 07/25/22 @ 23:22 by Marissa Minor PA-C) No pertinent past surgical history Social History Smoking Status: Never smoker Hx Alcohol Use: No Hx Substance Use: No Preferred Language: Eritrean Communication Ability: Effective Pipe Bender Required: No Beliefs That Will Affect Care: None Current Living Situation: Spouse Other Information That Helps Us Care for You: No Feels Safe at Home: Yes Safety Concerns: Feels Safe At This Time Assistive Devices: None Physical Exam Physical Exam: On exam she is most comfortable lying in the lateral decubitus position. She has tenderness palpation of the right trochanter and IT band. There is no significant pain to palpation of the lumbar musculature. She is neurologically intact. Results & Data ([facility]) Vital Signs (Past 12 Hours) Vital Signs Temp Pulse Pulse Pulse Resp BP BP 07/26/22 09:51 07/26/22 09:51 07/26/22 07:57 36.9 C 75 16 133/66 07/26/22 05:00 37.1 C 77 16 158/74 H 07/26/22 04:30 83 20 140/76 07/26/22 03:37 74 20 146/72 H 07/26/22 02:24 76 20 146/72 H 07/26/22 00:45 76 16 174/84 H Pulse Ox Pulse Ox O2 Del Method O2 Del Method O2 Flow Rate 07/26/22 09:51 92 Room Air 07/26/22 09:51 92 Room Air 07/26/22 07:57 96 Nasal Cannula 2 07/26/22 05:00 97 Room Air 07/26/22 04:30 96 Room Air 07/26/22 03:37 96 Nasal Cannula 2 07/26/22 02:24 98 Nasal Cannula 2 07/26/22 00:45 95 Nasal Cannula 2
[2022-07-26] MEDS: CYCLOBENZAPRINE HCL 10 MG TAB PO PRN (12:32)
--- NOTE | 2022-07-26 13:13 | Communication Note ---
Date of Service: July 26, 2022 62 year old woman with pmh low back pain who presents with exacerbation of her chronic low back pain Patient seen and examined Reports low back pain radiating to right buttock region. Described buttock pain as "squeezing and not letting go" Exam notable for obese woman in intermittent pain, tenderness over right hip/buttock Lumbar spine MRI showed acute mild to moderate superior endplate compression fracture at L2 with mild surrounding paravertebral edema, no significant central canal or neuroforaminal narrowing Continue flexeril Continue mophine prn. Make naproxen scheduled for now Add lidocaine patch Ortho recs noted Agree with other plans as detailed in H& P by Dr Trimble this AM
[2022-07-26] MEDS: LIDOCAINE 5% 1 PATCH TD SCH (14:21)
[2022-07-26] MEDS: LORazepam 0.5 MG TAB PO SCH (20:07)
[2022-07-26] MEDS: NAPROXEN 375 MG TAB PO SCH (20:07)
[2022-07-27] MEDS: MoRPHine SULFATE 4 MG/ML 1 ML CARP\\VIAL IV PRN ×2 (01:30→07:36)
[2022-07-27 07:56] LABS: Basophils # (auto) 0.02 K/uL (0-0.2); Basophils % (auto) 0.2 %; Eosinophils # (auto) 0.15 K/uL (0-0.50); Eosinophils % (auto) 1.7 %; Hematocrit (blood only) 41.5 % (34.1-44.9); Immature Granulocytes # (auto) 0.04 K/uL (0.00-0.02); Immature Granulocytes % (auto) 0.5 %; Lymphocytes # (auto) 2.11 K/uL (1.2-3.4); Lymphocytes % (auto) 24.5 %; Mean Corpuscular Hgb Conc 31.3 g/dL (32.0-36.0); Mean Corpuscular Volume 95.6 fL (80.0-100.0); Mean Platelet Volume 9.2 fL (9.4-12.3); Monocytes # (auto) 0.91 K/uL (0.24-0.82); Monocytes % (auto) 10.6 %; Neutrophils # (auto) 5.39 K/uL (1.4-6.5); Neutrophils % (auto) 62.5 %; Platelet Count 213 K/uL (130-400); RDW Coefficient of Variation 13.1 % (11.5-14.5); RDW Standard Deviation 46.2 fL (36.4-46.3); Red Blood Count 4.34 M/uL (3.93-5.22); White Blood Count 8.62 K/ul (4.8-10.8)
[2022-07-27] MEDS: LIDOCAINE 5% 1 PATCH TD SCH (08:40)
[2022-07-27] MEDS: CYCLOBENZAPRINE HCL 10 MG TAB PO PRN (08:40)
[2022-07-27] MEDS: ENOXAPARIN INJ 40 MG/0.4 ML SYR SQ SCH ×2 (08:40→20:52)
[2022-07-27] MEDS: CHOLECALCIFEROL 5,000 UNITS 125 MCG TAB PO SCH (08:41)
[2022-07-27] MEDS: CALCIUM 600MG + VIT D 400 IU TAB PO SCH ×2 (08:41→20:52)
[2022-07-27] MEDS: ASPIRIN 81 MG ECTAB PO SCH (08:41)
[2022-07-27] MEDS: DOCUSATE SODIUM 100 MG CAP PO SCH (08:41)
[2022-07-27] MEDS: NAPROXEN 375 MG TAB PO SCH ×2 (08:41→20:52)
[2022-07-27] MEDS: MULTIVITAMIN TAB PO SCH (08:41)
[2022-07-27] MEDS ORDERED: HYDROmorphone INJ 0.5 MG/0.5 ML SYR IV STA (11:40)
[2022-07-27] MEDS: ACETAMINOPHEN 500 MG TAB PO SCH ×2 (11:44→17:34)
--- NOTE | 2022-07-27 11:59 | Hospitalist Progress Note ---
Date of Service July 27, 2022 Assessment & Plan (1) Closed compression fracture of L2 vertebra: (2) Intractable low back pain: Plan: MRI lumbar spine showed acute mild to moderate superior endplate compression fracture at L2 with mild surrounding paravertebral edema, no significant central canal or neuroforaminal narrowing Change tylenol to scheduled Continue naproxen. Patient reports she has tolerated hydrocodone in the past. Start prn oxycodone Will give flexeril scheduled q8h for today as a component of her pain is from spasm. Will reassess in AM Use dilaudid prn only for severe pain Pain management c/s Check Vit D level Ortho eval noted (3) Morbid obesity: Plan: Patient needs weight loss (4) Meniere's disease: Plan: Reports taking 0.5mg ativan occasionally at night to sleep. Continue (5) Leukocytosis: Plan: Lkely stress response vs recent steroid use No signs or symptoms of infection at this time Leukocytosis is resolved Plan DVT ppx: Lovenox Code Status: Full Code Dispo: med/surg Admission and Anticipated Discharge Date Admission Date: July 26, 2022 Subjective Patient seen and examined Reports pain has been very poorly controlled overnight and this AM without any relief to morphine this AM Pain in lower back and right buttock region, moderate to severe, limits movement Denied any fevers, chills, nausea, abd pain, diarrhea, constipation Denied chest pain, cough, shortness of breath Denied dizziness, headache Physical Exam Constitutional: + well hydrated and + obese; no acute distress Eyes: PERRL, conjunctivae normal, anicteric sclerae ENMT: external ear and nose normal, oropharynx normal Respiratory: normal respiratory effort, lungs clear to auscultation Cardiovascular: Rate/Rhythm: regular rate and regular rhythm S1 S2 Gastrointestinal (Abdomen): normal bowel sounds, soft, nontender, no hepatosplenomegaly Musculoskeletal: Tenderness over right hip/buttock Neurologic: PERRL, EOMI, accommodation nl, no face palsy, no dysarthria Psychiatric: A+Ox3, euthymic affect Results & Data Results & Data ([facility]) Vital Signs (Past 12 Hours) Vital Signs Temp Pulse Resp BP Pulse Ox O2 Del Method 07/27/22 08:36 36.7 C 71 16 143/76 H 92 Room Air Laboratory Results Abnormal lab results 07/27/22 Range/Units 07:25 MCHC 31.3 L (32.0-36.0) g/dL MPV 9.2 L (9.4-12.3) fL [place] # (Auto) 0.91 H (0.24-0.82) K/uL Immature Gran # (Auto) 0.04 H (0.00-0.02) K/uL
[2022-07-27] MEDS: oxyCODONE HCL IR 5 MG TAB (IMMEDIATE RELEASE) PO PRN ×2 (13:18→19:57)
[2022-07-27] MEDS ORDERED: HYDROmorphone INJ 0.5 MG/0.5 ML SYR IV PRN ×2 (14:13→20:14)
[2022-07-27] MEDS: CYCLOBENZAPRINE HCL 10 MG TAB PO SCH ×2 (14:59→20:52)
[2022-07-27] MEDS: ONDANSETRON INJ 2 MG/ML 2 ML VIAL IV PRN (18:13)
[2022-07-27] MEDS ORDERED: KETOROLAC 30 MG/ML VIAL IV PRN (20:11)
[2022-07-27] MEDS: LORazepam 0.5 MG TAB PO SCH (20:51)
[2022-07-28] MEDS: ACETAMINOPHEN 500 MG TAB PO SCH ×3 (00:06→17:55)
[2022-07-28] MEDS: HYDROmorphone INJ 1 MG/ML SYRINGE IV PRN ×5 (00:06→22:46)
[2022-07-28] MEDS: CYCLOBENZAPRINE HCL 10 MG TAB PO SCH ×3 (06:08→21:48)
[2022-07-28] MEDS: ENOXAPARIN INJ 40 MG/0.4 ML SYR SQ SCH (06:08)
[2022-07-28 07:43] LABS: Hematocrit (blood only) 45.9 % (34.1-44.9); Hemoglobin 14.9 g/dl (12.0-16.0); Mean Corpuscular Hemoglobin 30.3 pg (25.0-34.0); Mean Corpuscular Hgb Conc 32.5 g/dL (32.0-36.0); Mean Corpuscular Volume 93.3 fL (80.0-100.0); Mean Platelet Volume 9.2 fL (9.4-12.3); Platelet Count 271 K/uL (130-400); RDW Coefficient of Variation 13.2 % (11.5-14.5); RDW Standard Deviation 45.4 fL (36.4-46.3); Red Blood Count 4.92 M/uL (3.93-5.22); White Blood Count 10.36 K/ul (4.8-10.8)
[2022-07-28] MEDS: oxyCODONE HCL IR 5 MG TAB (IMMEDIATE RELEASE) PO PRN ×2 (07:59→14:48)
[2022-07-28] MEDS: CALCIUM 600MG + VIT D 400 IU TAB PO SCH ×2 (08:00→20:12)
[2022-07-28] MEDS: ONDANSETRON INJ 2 MG/ML 2 ML VIAL IV PRN ×2 (08:00→17:55)
[2022-07-28] MEDS: CHOLECALCIFEROL 5,000 UNITS 125 MCG TAB PO SCH (08:00)
[2022-07-28] MEDS: NAPROXEN 375 MG TAB PO SCH ×2 (08:00→20:14)
[2022-07-28] MEDS: ASPIRIN 81 MG ECTAB PO SCH (08:00)
[2022-07-28] MEDS: LIDOCAINE 5% 1 PATCH TD SCH (08:01)
[2022-07-28] MEDS: DOCUSATE SODIUM 100 MG CAP PO SCH (08:01)
[2022-07-28] MEDS: MULTIVITAMIN TAB PO SCH (08:01)
[2022-07-28 08:04] LABS: BUN Creatinine Ratio 30.3 (10-20); Calcium 9.3 mg/dl (8.5-10.1); Creatinine Clr Calc Pharmacy 126.6 ml/min; Est GFR (African American) 108.2 ml/min; Est GFR (Non-African American) 93.4 ml/min; Potassium 4.1 mmol/L (3.5-5.1)
--- NOTE | 2022-07-28 08:36 | Orthopedic Progress Note ---
Date of Service July 28, 2022 Assessment & Plan (1) Closed compression fracture of L2 vertebra: Plan: This time the patient is markedly limited secondary to her back pain. She is not a good candidate for bracing secondary to her body habitus. She would like to consider a kyphoplasty. This is completely reasonable in light of her clinical picture and physical limitations. Kyphoplasty would involve L2. Risk benefits pros cons and alternatives were outlined in detail. I will make her n.p.o. after midnight plan for surgery tomorrow. Admission and Anticipated Discharge Date Admission Date: July 27, 2022 Subjective Patient continues to be markedly incapacitated with her back pain. Its limiting her ability to transfer and ambulate. She denies any radicular pain. She does have right trochanteric bursitis pain. Physical Exam Physical Exam: On exam she prefers to lie in a lateral decubitus position on the left. She is still markedly tender palpation lumbar spine to palpation and percussion. She is neurologically intact. Results & Data ([facility]) Vital Signs (Past 12 Hours) Vital Signs Temp Pulse Resp BP Pulse Ox O2 Del Method 07/27/22 23:32 36.9 C 80 18 119/68 94 Room Air
--- NOTE | 2022-07-28 13:47 | Hospitalist Progress Note ---
Date of Service July 28, 2022 Assessment & Plan (1) Closed compression fracture of L2 vertebra: (2) Intractable low back pain: Plan: MRI lumbar spine showed acute mild to moderate superior endplate compression fracture at L2 with mild surrounding paravertebral edema, no significant central canal or neuroforaminal narrowing Severe pain limiting activity Currently on multiple agents of different classes for pain control Continue flexeril scheduled q8h for now Awaiting Pain management c/s Ortho eval noted. Ortho planning possible kyphoplasty tomorrow Keep NPO PMN for now Will get another PT/OT post op (3) Morbid obesity: Plan: Patient needs weight loss (4) Meniere's disease: Plan: Reports taking 0.5mg ativan occasionally at night to sleep. Continue (5) Leukocytosis: Plan: Lkely stress response vs recent steroid use No signs or symptoms of infection at this time Leukocytosis is resolved Plan DVT ppx: Hold lovenox for now in view of possible surgery Code Status: Full Code Dispo: med/surg Admission and Anticipated Discharge Date Admission Date: July 27, 2022 Subjective Patient seen and examined Pain regimen adjustments yesterday and overnight resulted in improved pain Patient still reports pain in lower back and right buttock region, moderate Denied any fevers, chills, abd pain, diarrhea Reports nausea and constipation today Denied chest pain, cough, shortness of breath Denied dizziness, headache Physical Exam Constitutional: + well hydrated and + obese; no acute distress Eyes: PERRL, conjunctivae normal, anicteric sclerae ENMT: external ear and nose normal, oropharynx normal Respiratory: normal respiratory effort, lungs clear to auscultation Cardiovascular: Rate/Rhythm: regular rate and regular rhythm S1 S2 Gastrointestinal (Abdomen): normal bowel sounds, soft, nontender, no hepatosplenomegaly Musculoskeletal: Low back tenderness Neurologic: PERRL, EOMI, accommodation nl, no face palsy, no dysarthria Psychiatric: A+Ox3, euthymic affect Results & Data Results & Data ([facility]) Vital Signs (Past 12 Hours) Vital Signs Temp Pulse Resp BP Pulse Ox O2 Del Method 07/28/22 08:18 36.7 C 82 18 142/81 H 93 Room Air Laboratory Results Abnormal lab results 07/28/22 07/28/22 Range/Units 06:54 06:54 Hct 45.9 H (34.1-44.9) % MPV 9.2 L (9.4-12.3) fL BUN/Creatinine Ratio 30.3 H (10-20) Glucose 122 H (70-99(Fasting)) mg/dl
[2022-07-28] MEDS: LORazepam 0.5 MG TAB PO SCH (20:12)
[2022-07-28] MEDS ORDERED: ACETAMINOPHEN 1,000 MG/100 ML VIAL IV STA (22:28)
[2022-07-29] MEDS ORDERED: ACETAMINOPHEN 1000 MG/100 ML IV IV ONE (02:15)
[2022-07-29] MEDS ORDERED: ACETAMINOPHEN 1,000 MG/100 ML VIAL IV ONE (02:15)
[2022-07-29] MEDS: HYDROmorphone INJ 1 MG/ML SYRINGE IV PRN ×2 (03:36→07:29)
[2022-07-29] MEDS: CYCLOBENZAPRINE HCL 10 MG TAB PO SCH ×2 (05:14→13:07)
[2022-07-29 06:42] LABS: Hematocrit (blood only) 43.9 % (34.1-44.9); Hemoglobin 14.1 g/dl (12.0-16.0); Mean Corpuscular Hemoglobin 30.3 pg (25.0-34.0); Mean Corpuscular Hgb Conc 32.1 g/dL (32.0-36.0); Mean Corpuscular Volume 94.2 fL (80.0-100.0); Platelet Count 230 K/uL (130-400); RDW Coefficient of Variation 13.2 % (11.5-14.5); RDW Standard Deviation 45.8 fL (36.4-46.3); Red Blood Count 4.66 M/uL (3.93-5.22); White Blood Count 17.43 K/ul (4.8-10.8)
[2022-07-29 07:11] LABS: BUN Creatinine Ratio 31.1 (10-20); Calcium 9.1 mg/dl (8.5-10.1); Est GFR (African American) 99.2 ml/min; Est GFR (Non-African American) 85.6 ml/min; Potassium 4.2 mmol/L (3.5-5.1)
[2022-07-29] MEDS: ONDANSETRON INJ 2 MG/ML 2 ML VIAL IV PRN (07:24)
[2022-07-29] MEDS: NAPROXEN 375 MG TAB PO SCH (08:34)
[2022-07-29] MEDS: MULTIVITAMIN TAB PO SCH (08:34)
[2022-07-29] MEDS: LIDOCAINE 5% 1 PATCH TD SCH (08:34)
[2022-07-29] MEDS: ASPIRIN 81 MG ECTAB PO SCH (08:34)
[2022-07-29] MEDS: CALCIUM 600MG + VIT D 400 IU TAB PO SCH ×2 (08:34→20:17)
[2022-07-29] MEDS: CHOLECALCIFEROL 5,000 UNITS 125 MCG TAB PO SCH (08:34)
[2022-07-29] MEDS: DOCUSATE SODIUM 100 MG CAP PO SCH ×2 (08:34→20:17)
--- NOTE | 2022-07-29 08:59 | Pain Management Consultation ---
Date of Consultation July 29, 2022 Assessment & Plan (1) Closed compression fracture of L2 vertebra: (2) Morbid obesity: Plan Her medication regimen appears appropriate. Continue Flexeril, Percocet, and IV Dilaudid if needed for breakthrough. Lidocaine patch should be placed at her right gluteal or SI joint area. Back bracing is not likely going to be effective given the patient's body habitus. I did have a discussion on her expectations for pain relief as she states that she wants 100% pain relief. Appropriate expectations were placed. She is scheduled for Kyphoplasty by Dr. Cool today. Will sign off on the patient. Please contact with any questions or concerns. History of Present Illness Reason for Consultation: Intractable back pain Attending Physician: Fior Anderson MD History of Present Illness Mrs. Newell is a 62 year old female with 10 days of increased low back pain. Pain is located in the low back and radiates along the right hip and right lateral thigh. She was found to have an L2 compression fracture and scheduled with Dr. Cool for a kyphoplasty today. She has been taking Flexeril 10 mg, oxycodone 5mg and IV Dilaudid for pain relief which is slightly helpful. Lidocaine patches are providing some relief. She has previously received right SI joint injection by Dr. Win April 2019. Patient denies any bowel/bladder incontinence, saddle anesthesia, foot drop, or falls. Case discussed with Dr. Milagros Ramires Allergies Allergy/AdvReac Type Severity Reaction Status Date / Time adhesive Allergy Mild RASH Verified 08/14/20 09:48 erythromycin base Allergy Mild RASH Verified 08/14/20 09:48 codeine Allergy Unknown WELTS AND Verified 08/14/20 09:48 ITCHING latex Allergy Unknown WELTS, Verified 08/14/20 09:48 BLISTERS tetanus toxoid, adsorbed Allergy Unknown CELLULITIS Verified 08/14/20 09:48 AND HYPERTENSION SHINGLES VACCINE Allergy Unknown CELLULITIS Uncoded 06/12/20 09:55 AND HYPERTENSION Home Medications Medication Instructions Recorded Confirmed Type ascorbic acid (vitamin C) 500 mg 1 cap PO .TAKE 1 CAPSULE DAILY. 06/12/20 08/14/20 History capsule calcium carbonate 600 mg calcium mg PO .TAKE 1 TABLET TWICE DAILY. 06/12/20 08/14/20 History (1,500 mg) tablet cholecalciferol (vitamin D3) 125 1 PO .TAKE 1 CAPSULE DAILY. 06/12/20 08/14/20 History mcg (5,000 unit) capsule cyclosporine 0.05 % eye drops in a 1 ophthalmic (eye) .INSTILL 1 DROP 06/12/20 08/14/20 History dropperette IN EACH EYE TWICE DAILY. docusate sodium 100 mg tablet mg PO .TAKE 1 TABLET DAILY 06/12/20 08/14/20 History DIRECTED. lorazepam 0.5 mg tablet mg PO .TAKE ONE TABLET BY MOUTH AT 06/12/20 08/14/20 History BEDTIME aspirin 81 mg tablet,delayed 81 mg PO DAILY 08/14/20 08/14/20 History release doxycycline hyclate 100 mg capsule 100 mg PO DAILY #30 caps 08/14/20 08/14/20 Rx metronidazole 0.75 % topical cream 1 applic topical BID #45 grams 08/14/20 08/14/20 Rx multivitamin (Daily Multi-Vitamin 1 tab PO DAILY 08/14/20 08/14/20 History tablet) cyclobenzaprine 10 mg tablet 10 mg PO TID PRN muscle spasm #20 07/23/22 Rx tabs hydrocodone 5 mg-acetaminophen 325 1 - 2 tab PO Q6H PRN pain #24 tabs 07/23/22 Rx mg tablet Patient History Medical History Diverticulitis GERD (gastroesophageal reflux disease) Meniere's disease Morbid obesity Osteoporosis Surgical History No pertinent past surgical history Social History Smoking Status: Never smoker Hx Alcohol Use: No Hx Substance Use: No Preferred Language: Vincentian Communication Ability: Effective Physical Design Engineer Required: No Beliefs That Will Affect Care: None marital status: Current Living Situation: Spouse How many Children do You have: 0 Other Information That Helps Us Care for You: No Feels Safe at Home: No Is there a partner from a previous relationship who is making you feel unsafe now?: No Any Concerns about Your Family Situation: No Would You Like to Speak to Someone About Your Situation: No Safety Concerns: Feels Safe At This Time Assistive Devices: Cane Assistive Devices Comment: lift chair Physical Exam Physical Exam: GENERAL: This is a morbidly obese 62 year old female. Appearing moderately uncomfortable in the hospital bed. HEAD/FACE: Normocephalic and atraumatic. EYES: No drainage or conjunctival injection. ENT: Nose without bleeding or discharge. Oral mucosa moist. NECK: Full ROM without apparent pain. No swelling or masses noted. RESPIRATORY: Patient with unlabored breathing. No signs of respiratory distress. CHEST/AXILLA: Chest movement symmetrical. No deformities noted. BACK: Loss of lumbar lordosis. There is tenderness at midline L2. There is moderate tenderness along the right SI joint as well as the right gluteal region. SKIN: [place], warm and dry. No rash noted. MS/EXTREMITY: No swelling, no deformities. Moving extremities appropriately. NEURO: Alert and appears oriented. Speech is fluent. Cranial Nerves are grossly intact. PSYCH: Alert, pleasant, affect is calm Results ([facility]) Diagnostic Review MRI Findings: LUMBAR SPINE MRI HISTORY: severe pain w/ right leg weakness TECHNIQUE: Multiplanar multisequence MRI of the lumbar spine was performed without the use of contrast. COMPARISON: Lumbar spine radiograph 07/23/2022. FINDINGS: For the purpose of the report the L5-S1 disc space will be located on axial image 27 of 30. There is an old mild superior endplate compression deformity at L1. There is a 2.2 cm T12 vertebral body hemangioma. The conus terminates at the L1-L2 disc space level. There is an acute mild to moderate superior endplate compression fracture at L2 demonstrating up to 20% loss of height. There is mild paravertebral edema at this level. No subluxation or retropulsion identified. Mild facet degenerative changes within the lower lumbar spine. The visualized sacrum is intact. Disc spaces are preserved. A 1.4 cm hemangioma at L4. L1-L2: Small broad-based posterior disc bulge asymmetric to the left without significant central canal or neural foraminal narrowing. L2-L3: No significant central canal or neural foraminal narrowing. L3-L4: No significant central canal or neural foraminal narrowing. L4-L5: No significant central canal or neural foraminal narrowing. L5-S1: No significant central canal or neural foraminal narrowing. IMPRESSION: 1. An acute mild to moderate superior endplate compression fracture at L2 with mild surrounding paravertebral edema. No retropulsion. 2. No significant central canal or neural foraminal narrowing. ACT 112: Negative or not required by law. Electronically signed by: James Piedra M.D. 07/26/2022 6:56 AM
[2022-07-29] MEDS: ACETAMINOPHEN 500 MG TAB PO SCH ×2 (10:51→18:13)
--- NOTE | 2022-07-29 10:59 | Hospitalist Progress Note ---
Date of Service July 29, 2022 Assessment & Plan (1) Closed compression fracture of L2 vertebra: (2) Intractable low back pain: Plan: MRI lumbar spine showed acute mild to moderate superior endplate compression fracture at L2 with mild surrounding paravertebral edema, no significant central canal or neuroforaminal narrowing Severe pain limiting activity Currently on multiple agents of different classes for pain control, flexeril, scheduled APAP, naprosyn, oxy PRN, lidocaine patch Continue flexeril scheduled q8h for now to end at end of day today, 07/29 Scheduled naprosyn also to end 07/29 will re eval post operatively Pain management consulted and reviewed - no further recs, appreciate their assistance Ortho eval noted. Possible Kyphoplasty today Keep NPO until eval by ortho Will get another PT/OT post op (3) Hypoxia: Plan: Pt hypoxic this morning concomitant with use of Iv dilaudid ISP ordered pt w/o sx will obtain CXR given possible surgery (4) Morbid obesity: Plan: Patient needs weight loss counseled (5) Meniere's disease: Plan: Reports taking 0.5mg ativan occasionally at night to sleep. Continue (6) Leukocytosis: Plan: Likely stress response vs recent steroid use No signs or symptoms of infection at this time wbc 17.43k today Plan DVT ppx: Hold lovenox for now in view of possible surgery Code Status: Full Code Dispo: med/surg Pt was seen and examined in collaboration with Dr. Anderson, please see addendum Admission and Anticipated Discharge Date Admission Date: July 27, 2022 Supervising Physician Co-Signing Physician Notes Patient seen and examined. Continues to report low back pain also involving right gluteal region Patient reports some relief with current regimen. However, stated she did not sleep well last night due to pain. Had hypoxia earlier this AM. Denies any cough, shortness of breath, chest pain. Report nausea. Exam notable for low back tenderness and right gluteal tenderness. Chest is clear to auscultation bilaterally Hypoxia likely related to opioid side effect. Reduce dilaudid to 0.5mg for breakthrough pain Pain managment recommendation appreciated Continue multimodal approach to pain relief Awaiting kyphoplasty by Dr Cool today. Agree with other plans as detailed by Catherine Laughlin PA-C Subjective Patient seen and examined in room 388-1. Follow up back pain. Eval around 0830. Pain currently a 10/10. She received IV dilaudid around 730. Nurse at bedside states at the same time her O2 sats dropped initially to 70s, then 80s and eventual 90s with O2 placed. She denies any chest pain, sob, cough, palpitations, n/v/d, abd pain, dizzy or lightheaded. No BM since hospitalized, "but i'm not eating." Overall poor intake. Currently pain located R buttock to R lateral thigh, sharp and stabbing. Dilaudid does take edge off. She is hoping for surgery today. She also complains of L calf cramp and requesting to use her epsom salt gel. Review of Systems Review of Systems: All systems reviewed & are unremarkable except as noted in HPI & below Physical Exam Physical Exam: Gen: WD/WN, morbidly obese F, lying in bed, NAD, A&O x3 HEENT: Normocephalic, atraumatic, conjunctivae moist, sclerae anicteric, mucous membranes moist. Lung: Clear to Auscultation bilaterally, no wheezes/rales/rhonchi Heart: Regular rate, regular rhythm, no murmurs, rubs, or gallops Abdomen: Soft, NT, ND +BS x 4 Extremities: No edema, obese LE Skin: Warm, no rash, negative turgor. Results & Data Results & Data ([facility]) Vital Signs (Past 12 Hours) Vital Signs Temp Pulse Resp BP Pulse Ox Pulse Ox O2 Del Method 07/29/22 09:00 Nasal Cannula 07/29/22 09:00 94 07/29/22 07:39 94 Nasal Cannula 07/29/22 07:37 37.2 C 101 H 20 109/54 L 81 L Room Air O2 Del Method O2 Flow Rate O2 Flow Rate 07/29/22 09:00 3 07/29/22 09:00 Nasal Cannula 3 07/29/22 07:39 3 07/29/22 07:37 Laboratory Results Short CBC 07/29/22 Range/Units 06:27 WBC 17.43 H (4.8-10.8) K/ul Hgb 14.1 (12.0-16.0) g/dl Hct 43.9 (34.1-44.9) % Plt Count 230 (130-400) K/uL BMP 07/29/22 06:27 Sodium 137 Potassium 4.2 Chloride 99 Carbon Dioxide 34 H BUN 23 Creatinine 0.74 Glucose 140 H Calcium 9.1 Medications Administered Current Inpatient Medications Acetaminophen (Acetaminophen 500 Mg Tab) 1,000 mg PO Q8H [facility] Stop: 08/26/22 10:14 Last Admin: 07/29/22 10:51 Dose: Not Given Aspirin (Aspirin 81 Mg Ectab) 81 mg PO DAILY CHANDNI Stop: 08/25/22 08:59 Last Admin: 07/29/22 08:34 Dose: Not Given Cyclobenzaprine HCl (Cyclobenzaprine Hcl 10 Mg Tab) 10 mg PO Q8 CHANDNI Stop: 07/29/22 14:59 Last Admin: 07/29/22 05:14 Dose: Not Given Diclofenac Sodium (Diclofenac Sod 1% Gel 100 Gm Tube) 4 gm EXT Q6 PRN; Protocol PRN Reason: LOWER BACK PAIN Stop: 08/25/22 05:59 Docusate Sodium (Docusate Sodium 100 Mg Cap) 100 mg PO DAILY CHANDNI Stop: 08/25/22 08:59 Last Admin: 07/29/22 08:34 Dose: Not Given Enoxaparin Sodium (Enoxaparin Inj 40 Mg/0.4 Ml Syr) 40 mg SQ Q12H CHANDNI Stop: 08/25/22 07:14 Last Admin: 07/28/22 06:08 Dose: 40 mg Hydromorphone HCl (Hydromorphone Inj 0.5 Mg/0.5 Ml Syr) 0.5 mg IV Q4 PRN PRN Reason: Breakthrough or severe Pain Stop: 08/12/22 07:46 Lidocaine (Lidocaine 5% 1 Patch) 1 patch TD QAM [facility] Stop: 08/25/22 13:29 Last Admin: 07/29/22 08:34 Dose: Not Given Lorazepam (Lorazepam 0.5 Mg Tab) 0.5 mg PO HS [facility] Stop: 08/25/22 20:59 Last Admin: 07/28/22 20:12 Dose: 0.5 mg Miscellaneous (Cyclosporine 0.05% [Restasis]: Order Awaiting Action) 1 each N/A QS CHANDNI Stop: 08/25/22 07:59 Last Admin: 07/29/22 07:30 Dose: Not Given Miscellaneous (Remove Lidoderm Patch) 1 each N/A DAILY@2100 [facility] Stop: 08/25/22 20:59 Last Admin: 07/28/22 20:14 Dose: 1 each Multivitamins (Multivitamin Tab) 1 tab PO DAILY [facility] Stop: 08/25/22 08:59 Last Admin: 07/29/22 08:34 Dose: Not Given Multivitamins/Minerals (Calcium 600mg + Vit D 400 Iu Tab) 1 tab PO BID CHANDNI Stop: 08/25/22 08:59 Last Admin: 07/29/22 08:34 Dose: Not Given Naproxen (Naproxen 375 Mg Tab) 375 mg PO BID [facility] Stop: 07/29/22 20:59 Last Admin: 07/29/22 08:34 Dose: Not Given Ondansetron HCl (Ondansetron Inj 2 Mg/Ml 2 Ml Vial) 4 mg IV Q8H PRN PRN Reason: Nausea And Vomiting Stop: 08/26/22 18:06 Last Admin: 07/29/22 07:24 Dose: 4 mg Oxycodone HCl (Oxycodone Hcl Ir 5 Mg Tab (Immediate Release)) 5 mg PO Q6H PRN PRN Reason: Pain Stop: 08/10/22 11:31 Last Admin: 07/28/22 14:48 Dose: 5 mg Polyethylene Glycol (Polyethylene (Miralax) 17 Gm Pack) 17 gm PO DAILY PRN PRN Reason: Constipation Stop: 08/25/22 03:22 Last Admin: 07/28/22 17:55 Dose: 17 gm Vitamin D (Cholecalciferol 5,000 Units 125 Mcg Tab) 5,000 units PO DAILY CHANDNI Stop: 08/25/22 08:59 Last Admin: 07/29/22 08:34 Dose: Not Given
[2022-07-29] MEDS: HYDROmorphone INJ 0.5 MG/0.5 ML SYR IV PRN ×2 (12:38→22:34)
--- NOTE | 2022-07-29 12:45 | XRay Report ---
XR chest 1V portable HISTORY: hypoxia COMPARISON: Chest 08/06/2017. FINDINGS: Rotated study. This likely accounts for the apparent right infrahilar density. This likely represents the normal pulmonary vessels. Otherwise, no focal lung consolidations to suggest pneumonia . The heart remains mildly enlarged. There is mild central pulmonary vascular congestion without over t edema. No pleural effusions. No pneumothorax. IMPRESSION: 1. Mild cardiomegaly with mild central pulmonary vascular congestion without overt edema. 2. Slightly rotated study. ACT 112: Negative or not required by law. Electronically signed by: James Piedra M.D. 07/29/2022 12:44 PM
[2022-07-29] MEDS ORDERED: MIDAZOLAM HCL 1 MG/ML 2ML VIAL ONE (14:53)
[2022-07-29] MEDS ORDERED: fentaNYL citrate 100 MCG/2 ML VIAL ONE (14:53)
--- NOTE | 2022-07-29 15:10 | Communication Note ---
Date of Service: July 29, 2022 Patient seen and examined. Continues to report low back pain also involving right gluteal region Patient reports some relief with current regimen. However, stated she did not sleep well last night due to pain. Had hypoxia earlier this AM. Denies any cough, shortness of breath, chest pain. Report nausea. Exam notable for low back tenderness and right gluteal tenderness. Chest is clear to auscultation bilaterally Hypoxia likely related to opioid side effect. Reduce dilaudid to 0.5mg for breakthrough pain Pain managment recommendation appreciated Continue multimodal approach to pain relief Awaiting kyphoplasty by Dr Cool today. Agree with other plans as detailed by Catherine Laughlin PA-C
--- NOTE | 2022-07-29 15:15 | Anesthesiology Consultation ---
Date of Service July 29, 2022 Assessment & Plan (1) Encounter for pre-operative examination: Chart Review Chart Review: Acceptable Risk for Surgery and Patient NOT seen in Pre Admission Testing Consults Requested none History Surgery Operation Date: 07/29/22 07:00 Proposed Procedures p Kyphoplasty L2 - Arley Cool DO Height/Weight Height: 5 ft 7 in Weight: 140.5 kg Allergies Allergy/AdvReac Type Severity Reaction Status Date / Time adhesive Allergy Mild RASH Verified 08/14/20 09:48 erythromycin base Allergy Mild RASH Verified 08/14/20 09:48 codeine Allergy Unknown WELTS AND Verified 08/14/20 09:48 ITCHING latex Allergy Unknown WELTS, Verified 08/14/20 09:48 BLISTERS tetanus toxoid, adsorbed Allergy Unknown CELLULITIS Verified 08/14/20 09:48 AND HYPERTENSION SHINGLES VACCINE Allergy Unknown CELLULITIS Uncoded 06/12/20 09:55 AND HYPERTENSION Medications Home Medications Medication Instructions Recorded Confirmed Last Taken ascorbic acid (vitamin C) 500 mg 1 cap PO .TAKE 1 CAPSULE DAILY. 06/12/20 07/29/22 Unknown capsule calcium carbonate 600 mg calcium 600 mg PO BID 06/12/20 07/29/22 Unknown (1,500 mg) tablet (Calcium) cholecalciferol (vitamin D3) 125 125 mcg PO DAILY 06/12/20 07/29/22 Unknown mcg (5,000 unit) capsule cyclosporine 0.05 % eye drops in a 1 drp ophthalmic (eye) BID 06/12/20 07/29/22 Unknown dropperette docusate sodium 100 mg tablet 100 mg PO DAILY PRN Constipation 06/12/20 07/29/22 Unknown lorazepam 0.5 mg tablet 0.5 mg PO HS 06/12/20 07/29/22 Unknown aspirin 81 mg tablet,delayed 81 mg PO DAILY 08/14/20 07/29/22 Unknown release doxycycline hyclate 100 mg capsule 100 mg PO DAILY #30 caps 08/14/20 07/29/22 U nknown metronidazole 0.75 % topical cream 1 applic topical BID #45 grams 08/14/20 07/29/22 Unknown multivitamin (Daily Multi-Vitamin 1 tab PO DAILY 08/14/20 07/29/22 Unknown tablet) cyclobenzaprine 10 mg tablet 10 mg PO TID PRN muscle spasm #20 07/23/22 07/29/22 Unknown tabs hydrocodone 5 mg-acetaminophen 325 1 - 2 tab PO Q6H PRN pain #24 tabs 07/23/22 07/29/22 Unknown mg tablet Active Medications Generic Name Dose Route Start Last Admin Trade Name Freq PRN Reason Stop Dose Admin Acetaminophen 1,000 mg 07/27/22 10:15 07/29/22 10:51 Acetaminophen 500 Mg Tab PO 08/26/22 10:14 Not Given Q8H CHANDNI Aspirin 81 mg 07/26/22 09:00 07/29/22 08:34 Aspirin 81 Mg Ectab PO 08/25/22 08:59 Not Given DAILY CHANDNI Enoxaparin Sodium 40 mg 07/26/22 07:15 07/28/22 06:08 Enoxaparin Inj 40 Mg/0.4 Ml Syr SQ 08/25/22 07:14 40 mg Q12H CHANDNI Administration Hydromorphone HCl 0.5 mg 07/29/22 07:47 07/29/22 12:38 Hydromorphone Inj 0.5 Mg/0.5 Ml Syr IV 08/12/22 07:46 0.5 mg Q4 PRN Administration Breakthrough or severe Pain Lidocaine 1 patch 07/26/22 13:30 07/29/22 08:34 Lidocaine 5% 1 Patch TD 08/25/22 13:29 Not Given QAM CHANDNI Lorazepam 0.5 mg 07/26/22 21:00 07/28/22 20:12 Lorazepam 0.5 Mg Tab PO 08/25/22 20:59 0.5 mg HS CHANDNI Administration Miscellaneous 1 each 07/26/22 08:00 07/29/22 15:03 Cyclosporine 0.05% [Restasis]: Order Awaiting Action N/A 08/25/22 07:59 Not Given QS CHANDNI Miscellaneous 1 each 07/26/22 21:00 07/28/22 20:14 Remove Lidoderm Patch N/A 08/25/22 20:59 1 each DAILY@2100 CHANDNI Administration Multivitamins 1 tab 07/26/22 09:00 07/29/22 08:34 Multivitamin Tab PO 08/25/22 08:59 Not Given DAILY CHANDNI Multivitamins/Minerals 1 tab 07/26/22 09:00 07/29/22 08:34 Calcium 600mg + Vit D 400 Iu Tab PO 08/25/22 08:59 Not Given BID CHANDNI Naproxen 375 mg 07/26/22 21:00 07/29/22 08:34 Naproxen 375 Mg Tab PO 07/29/22 20:59 Not Given BID CHANDNI Ondansetron HCl 4 mg 07/27/22 18:07 07/29/22 07:24 Ondansetron Inj 2 Mg/Ml 2 Ml Vial IV 08/26/22 18:06 4 mg Q8H PRN Administration Nausea And Vomiting Oxycodone HCl 5 mg 07/27/22 11:32 07/28/22 14:48 Oxycodone Hcl Ir 5 Mg Tab (Immediate Release) PO 08/10/22 11:31 5 mg Q6H PRN Administration Pain Vitamin D 5,000 units 07/26/22 09:00 07/29/22 08:34 Cholecalciferol 5,000 Units 125 Mcg Tab PO 08/25/22 08:59 Not Given DAILY CHANDNI Past Medical History Medical History Diverticulitis GERD (gastroesophageal reflux disease) Meniere's disease Morbid obesity Osteoporosis Past Surgical History Surgical History No pertinent past surgical history Social History Smoking Status: Never smoker Hx Alcohol Use: No Hx Substance Use: No Physical Exam Vital Signs Last Vital Signs Temp 98.3 F 07/29/22 14:34 Pulse 88 07/29/22 14:34 Resp 18 07/29/22 14:34 BP 144/72 H 07/29/22 14:34 Pulse Ox 95 07/29/22 14:34 O2 Del Method 07/29/22 14:34 O2 Flow Rate 3 07/29/22 14:34 Testing Laboratory Results 07/29/22 06:27 07/29/22 06:27
[2022-07-29] MEDS ORDERED: BUPIVACAINE/EPINEPHRINE 0.25% 1:200,000 30 ML VIAL ONE (15:32)
--- NOTE | 2022-07-29 15:32 | History & Physical Bridge Note ---
Date of Service July 29, 2022 History & Physical Bridge Note I have examined the patient, reviewed the History & Physical and in the interval since the performance of the History & Physical I have noted the following changes of clinical significance: no changes noted L2 kyphoplasty
[2022-07-29] MEDS ORDERED: ceFAZolin 3000MG/72.5 ML BAG IV ONE (15:40)
[2022-07-29] MEDS ORDERED: LABETALOL HCL IV 5 MG/ML 20ML IV PRN (16:01)
[2022-07-29] MEDS ORDERED: fentaNYL citrate 100 MCG/2 ML VIAL IV PRN (16:01)
[2022-07-29] MEDS ORDERED: ATROPINE SULFATE 0.1 MG/ML 10ML SYR IV PRN (16:01)
[2022-07-29] MEDS ORDERED: ePHEDrine sulfate 50 MG/ML AMP IV PRN (16:01)
[2022-07-29] MEDS ORDERED: ONDANSETRON INJ 2 MG/ML 2 ML VIAL IV PRN (16:01)
[2022-07-29] MEDS ORDERED: LIDOCAINE 2% MPF LOCAL 5 ML VIAL INFIL ONE (16:31)
[2022-07-29] MEDS ORDERED: ONDANSETRON INJ 2 MG/ML 2 ML VIAL ONE (16:31)
[2022-07-29] MEDS ORDERED: DEXAMETHASONE SOD INJ 4 MG/ML VIAL ONE (16:31)
[2022-07-29] MEDS ORDERED: PROPOFOL IV EMULSION 10 MG/ML 20 ML VIAL IV ONE (16:31)
[2022-07-29] MEDS ORDERED: PHENYLEPHRINE 100MCG/ML 5ML SYR ONE (16:31)
[2022-07-29] MEDS ORDERED: SUCCINYLCHOLINE CHLORIDE 20 MG/ML 10 ML VIAL IV ONE (16:31)
--- NOTE | 2022-07-29 17:04 | Operative Report ---
Post Operative Report Pre & Post Diagnosis Operation Date: 07/29/22 07:00 Pre-Op Diagnosis: L2 compression fracture Post-Op Diagnosis: Same I identified the patient and participated in the time-out.: Yes Procedure Operation Date: 07/29/22 07:00 Kyphoplasty L2 vertebral body Surgeon Arley Cool DO Saw Filer None Estimated Blood Loss 5 Findings See Below The patient is 5 foot 7 weighing over 140 kg with a BMI in excess of 48. The patient body habitus did contribute to significant technical difficulty with positioning and access. This at least 50% increased to the operative time. Specimens None Indications This is a 62-year-old female who presents with above-mentioned diagnosis. Having marked pain and difficulties with activities of daily living including simple transfers from bed to chair due to pain we will move forward with surgical stabilization by way of kyphoplasty. Description of Procedure Patient was met with identified informed consent obtained. Patient was then taken to the operative suite underwent a patient placed in a prone position the chest table chest padded bolsters. All bony prominences well-padded eyes inspected to ensure no external pressure placed upon the. This point the thoracolumbar spine was prepped and draped no sterile fashion. The assistance of fluoroscopy in AP and lateral planes identified the L2 vertebral body and 2 small incisions were placed just lateral to the pedicles. 2 Kyphon working cannulas were then inserted and by way of a transpedicular approach placed into the vertebral body of L2. Core biopsies were attempted however no adequate tissue was obtained. I then inserted 2 Kyphon balloons and sequentially inflated under fluoroscopic visualization. The balloons were subsequently removed and approximately 6 cc of Kyphon bone cement injected demonstrating excellent fill and interdigitation. Working cannulas were then removed the small incisions closed with subcutaneous Monocryl and sterile dressing. Patient was then awakened taken to PACU stable condition. I attest to the content of the Intraoperative Record and any orders documented therein. Any exceptions are noted below.
--- NOTE | 2022-07-29 17:54 | Fluoroscopy Report ---
FL lumbar spine 2-3V CLINICAL HISTORY: L2 KYPHO TECHNIQUE: 12 views were obtained with the C-arm in the OR with the above procedure. Total fluoroscop y time was 2 minutes 2 seconds seconds. Comparison: None available at the time of this dictation. FINDINGS/IMPRESSION: Intraoperative images were obtained of L2 kyphoplasty. Please correlate with intraoperative fluoroscopy and operative report. ACT 112: Negative or not required by law. Electronically signed by: Kyrie Levy M.D. 07/29/2022 5:53 PM
--- NOTE | 2022-07-29 17:58 | Anesthesiology Progress Note ---
Date of Service July 29, 2022 Anesthesia Post Procedure Vital Signs Vital Signs: Temp Pulse Pulse Resp BP BP Pulse Ox 07/29/22 17:55 97.5 F L 97 H 18 106/79 96 07/29/22 17:45 101 H 20 142/78 H 94 07/29/22 17:35 103 H 22 146/65 H 92 07/29/22 17:25 105 H 20 144/75 H 92 07/29/22 17:16 97.7 F 104 H 20 150/93 H 91 07/29/22 14:34 98.3 F 88 18 144/72 H 95 07/29/22 12:29 96 H 16 124/75 95 07/29/22 09:00 07/29/22 09:00 07/29/22 07:39 94 07/29/22 07:37 99.0 F 101 H 20 109/54 L 81 L 07/28/22 21:58 98.2 F 90 16 144/71 H 91 Pulse Ox O2 Del Method O2 Del Method O2 Flow Rate O2 Flow Rate 07/29/22 17:55 Nasal Cannula 3 07/29/22 17:45 Oxymask 5 07/29/22 17:35 Oxymask 10 07/29/22 17:25 Oxymask 10 07/29/22 17:16 Oxymask 10 07/29/22 14:34 Nasal Cannula 3 07/29/22 12:29 Nasal Cannula 3 07/29/22 09:00 Nasal Cannula 3 07/29/22 09:00 94 Nasal Cannula 3 07/29/22 07:39 Nasal Cannula 3 07/29/22 07:37 Room Air 07/28/22 21:58 Room Air Pain Intensity Lower Back: Pain Intensity: 4 Transfer of Care Handoff Completed per policy Notes Mental Status: alert / awake / arousable and participated in evaluation Patient Amnestic to Procedure: Yes Nausea / Vomiting: adequately controlled Pain: adequately controlled Airway Patency, RR, SpO2: stable & adequate BP & HR: stable & adequate Hydration State: stable & adequate Anesthetic Complications: no major complications apparent and Pt Satisfied with anesthetic care
[2022-07-29] MEDS: LORazepam 0.5 MG TAB PO SCH (20:17)
[2022-07-29] MEDS: oxyCODONE HCL IR 5 MG TAB (IMMEDIATE RELEASE) PO PRN (21:02)
[2022-07-30] MEDS: ACETAMINOPHEN 500 MG TAB PO SCH ×2 (02:03→09:15)
[2022-07-30] MEDS ORDERED: DICLOFENAC SOD 1% GEL 100 GM TUBE EXT SCH (08:30)
[2022-07-30] MEDS: MULTIVITAMIN TAB PO SCH (09:00)
[2022-07-30] MEDS: DOCUSATE SODIUM 100 MG CAP PO SCH (09:00)
[2022-07-30] MEDS ORDERED: POLYETHYLENE (MIRALAX) 17 GM PACK PO SCH (09:00)
[2022-07-30] MEDS: ASPIRIN 81 MG ECTAB PO SCH (09:00)
[2022-07-30] MEDS: CALCIUM 600MG + VIT D 400 IU TAB PO SCH (09:00)
[2022-07-30] MEDS: CHOLECALCIFEROL 5,000 UNITS 125 MCG TAB PO SCH (09:01)
[2022-07-30] MEDS: LIDOCAINE 5% 1 PATCH TD SCH (09:10)
--- NOTE | 2022-07-30 09:41 | Orthopedic Progress Note ---
Date of Service July 30, 2022 Assessment & Plan (1) Closed compression fracture of L2 vertebra: Plan: This time from an orthopedic standpoint patient is is ready for discharge. She will follow-up in the office in the next few weeks for for x-rays and dresser trochanteric bursitis. She will require a wheeled walker. I reviewed her restrictions. Admission and Anticipated Discharge Date Admission Date: July 27, 2022 Subjective Patient's back pain is markedly improved. Struggling with some trochanteric bursitis particularly on the right. Physical Exam Physical Exam: On exam patient is in the chair at the bedside. She is markedly more comfortable. She is neurologically intact. Results & Data ([facility]) Vital Signs (Past 12 Hours) Vital Signs Temp Pulse Pulse Resp BP Pulse Ox O2 Del Method 07/30/22 07:59 Room Air 07/30/22 07:55 36.8 C 84 18 107/66 92 Room Air 07/30/22 02:24 36.3 C L 81 18 149/67 H 93 Room Air
--- NOTE | 2022-07-30 10:56 | Discharge Summary ---
Date of Service July 30, 2022 Admission HPI Per Admitting Provider The patient is a 62 year old woman with pmh low back pain who presents with exacerbation of her chronic low back pain. Her symptoms started about 10 days ago. She had gone on a long walk with her , then states that she did some cleaning and moving furniture around, then woke up with pain the next day. She does report a history of low back pain a couple of years ago. She had an MRI, saw Dr. Cool and ultimately saw Dr. Win, and had had SI injections in April 2019, and has been completely pain-free until 10 days ago. She notes midline pain in the low back, below her belt line and just above her gluteal cleft. It does radiate to her mid posterior thigh. She has been taking Tylenol, and ibuprofen, admittedly only about 200 mg a dose, but her symptoms are getting worse. She rates her pain a 10/10 currently. Her primary care provider started her on some prednisone 3 days ago, she has had a total of 3 doses. She has not seen significant change with this. She also has been seen by her chiropractor. She had some x-rays, but they would not adjust her due to her pain. She has tried ice which has helped, heat which made things worse, Epson salt gel, Voltaren gel, Salonpas patches and a natural muscle relaxer, all without relief. She denies any bowel or bladder incontinence or saddle anesthesias. No recent imaging of her back. There is no numbness, tingling or weakness radiating into the legs past the knee. She denied fevers or chills, n/v/d, abdominal pain, dysuria, cough, shortness of breath, chest pain. In the ED, vitals were unremarkable. Labs were significant for WBC 12. She was given pain mediation, MRI was done and she was admitted to medicine. Admission Exam Per Admitting Provider Physical Exam Constitutional: WD/WN, vitals as above + acute distress (from pain) and + obese; not ill appearing Eyes: PERRL, conjunctivae normal, anicteric sclerae ENMT: external ear and nose normal, oropharynx normal Neck: trachea midline, no thyromegaly Respiratory: normal respiratory effort, lungs clear to auscultation Cardiovascular: RRR, no murmur, no edema Gastrointestinal (Abdomen): normal bowel sounds, soft, nontender, no hepatosplenomegaly Musculoskeletal: no cyanosis or clubbing, extremities motor strength 5/5 tenderness to palpation on right paraspinal musculature and superior aspect of right buttock. No spinal point tenderness - unable to perform straight leg test due to patient positioning and pain. Skin: no rashes, warm and dry Neurologic: patellar DTR's 2+ bilat, sensation intact and PERRL, EOMI, accommodation nl, no face palsy, no dysarthria Psychiatric: A+Ox3, euthymic affect Principal Diagnosis L2 compression fracture R trochanteric bursitis Hypoxia - resolved Discharge Exam Gen: WD/WN, morbidly obese F, lying in bed, NAD, A&O x3 HEENT: Normocephalic, atraumatic, conjunctivae moist, sclerae anicteric, mucous membranes moist. Lung: Clear to Auscultation bilaterally, no wheezes/rales/rhonchi Heart: Regular rate, regular rhythm, no murmurs, rubs, or gallops Abdomen: Soft, NT, ND +BS x 4 Extremities: No edema, obese LE Skin: Warm, no rash, negative turgor. Discharge Data Allergies Allergy/AdvReac Type Severity Reaction Status Date / Time adhesive Allergy Mild RASH Verified 08/14/20 09:48 erythromycin base Allergy Mild RASH Verified 08/14/20 09:48 codeine Allergy Unknown WELTS AND Verified 08/14/20 09:48 ITCHING latex Allergy Unknown WELTS, Verified 08/14/20 09:48 BLISTERS tetanus toxoid, adsorbed Allergy Unknown CELLULITIS Verified 08/14/20 09:48 AND HYPERTENSION SHINGLES VACCINE Allergy Unknown CELLULITIS Uncoded 06/12/20 09:55 AND HYPERTENSION Consultations 07/26/22 03:14 ED Decision to Admit Stat 07/26/22 05:45 Consult Orthopedic Surgery Routine 07/27/22 11:33 Consult Pain Management Routine Procedures Performed Operation Date: 07/29/22 07:00 Actual Procedures p Kyphoplasty L2 - Arley Cool DO Ordered Studies Lumbar Spine MRI 07/26/22 23:29 LUMBAR SPINE MRI HISTORY: severe pain w/ right leg weakness TECHNIQUE: Multiplanar multisequence MRI of the lumbar spine was performed without the use of contrast. COMPARISON: Lumbar spine radiograph 07/23/2022. FINDINGS: For the purpose of the report the L5-S1 disc space will be located on axial image 27 of 30. There is an old mild superior endplate compression deformity at L1. There is a 2.2 cm T12 vertebral body hemangioma. The conus terminates at the L1-L2 disc space level. There is an acute mild to moderate superior endplate compression fracture at L2 demonstrating up to 20% loss of height. There is mild paravertebral edema at this level. No subluxation or retropulsion identified. Mild facet degenerative changes within the lower lumbar spine. The visualized sacrum is intact. Disc spaces are preserved. A 1.4 cm hemangioma at L4. L1-L2: Small broad-based posterior disc bulge asymmetric to the left without significant central canal or neural foraminal narrowing. L2-L3: No significant central canal or neural foraminal narrowing. L3-L4: No significant central canal or neural foraminal narrowing. L4-L5: No significant central canal or neural foraminal narrowing. L5-S1: No significant central canal or neural foraminal narrowing. IMPRESSION: 1. An acute mild to moderate superior endplate compression fracture at L2 with mild surrounding paravertebral edema. No retropulsion. 2. No significant central canal or neural foraminal narrowing. ACT 112: Negative or not required by law. Electronically signed by: James Piedra M.D. 07/26/2022 6:56 AM Chest X-Ray 07/29/22 12:12 XR chest 1V portable HISTORY: hypoxia COMPARISON: Chest 08/06/2017. FINDINGS: Rotated study. This likely accounts for the apparent right infrahilar density. This likely represents the normal pulmonary vessels. Otherwise, no focal lung consolidations to suggest pneumonia. The heart remains mildly enla rged. There is mild central pulmonary vascular congestion without overt edema. No pleural effusions. No pneumothorax. IMPRESSION: 1. Mild cardiomegaly with mild central pulmonary vascular congestion without overt edema. 2. Slightly rotated study. ACT 112: Negative or not required by law. Electronically signed by: James Piedra M.D. 07/29/2022 12:44 PM Lumbar Spine X-Ray 07/29/22 15:00 FL lumbar spine 2-3V CLINICAL HISTORY: L2 KYPHO TECHNIQUE: 12 views were obtained with the C-arm in the OR with the above procedure. Total fluoroscopy time was 2 minutes 2 seconds seconds. Comparison: None available at the time of this dictation. FINDINGS/IMPRESSION: Intraoperative images were obtained of L2 kyphoplasty. Please correlate with intraoperative fluoroscopy and operative report. ACT 112: Negative or not required by law. Electronically signed by: Kyrie Levy M.D. 07/29/2022 5:53 PM Hospital Course (1) Closed compression fracture of L2 vertebra: (2) Intractable low back pain: This is a 62F yr old F who presented to ED 2/2 exacerbation of acute on chronic low back pain. Symptoms started approximately 10 days prior to arrival. There was no joaquín trauma; however, patient states she was cleaning, moving furniture around and woke up the next day with significant pain. She does have history of low back pain in the past. In outpatient setting she was initially started on oral prednisone without much improvement. She also tried [id number] remedies without any improvement. On admission patient underwent MRI of lumbar spine which revealed a closed compression fracture of L2. She initially was treated conservatively with pain medication and early ambulation. She did not tolerate this well required IV Dilaudid for pain management. This further led to narcotic induced hypoxia. She was seen and evaluated by orthopedic spine who ultimately elected to perform kyphoplasty. On 07/29 she underwent L2 kyphoplasty without complication. She tolerated the procedure well. On day of discharge, 07/30, she is pain-free. She has also been weaned off oxygen with use of incentive spirometry. She no longer requires IV narcotics. She does continue to have pain in her right lateral thigh in the trochanteric bursa region. She has pain to palpation without radiation of pain. On day of discharge she was able to ambulate with therapy approximately 150 feet with rolling walker. She is in good spirits on day of discharge her vital signs were otherwise stable. She will follow-up with orthopedics in 2 weeks. She is to not lift more than 5 pounds. At this appointment she will follow-up postoperatively as well as they will address her trochanteric bursitis. (3) Hypoxia: (4) Morbid obesity: (5) Meniere's disease: (6) Leukocytosis: Total Time Total Time Spent Total Time Spent (In Minutes): 60 minutes Discharge Plan Discharge Items Patient Disposition: Home - Self-Care Reason For Visit: BACK PAIN Discharge Diagnosis: L2 compression fracture R trochanteric bursitis Hypoxia - resolved Condition on Discharge: Good Activity: Per Instructions section Lifting: No more than 5 pounds Bathing Comment: May shower postop day #2 Weightbearing: Full weightbearing Non-emergency contact: Primary Care Provider and Surgeon Call non-emergency contact if: you have any medication questions, your symptoms worsen, your pain is not controlled, your pain is worsening, your pain is unusual for you, your pain is concerning for you, you have a fever, your temperature is above 101, your wound has increased redness and your wound has increased drainage Follow-up/Referrals: Parish Perez [Primary Care Provider] - 08/01/22 1:00 pm Diet: Heart Healthy Addtl Attending Provider Instructions: MEDICATION CHANGES: Voltaren Gel 1%, apply to R lateral hip every 6 hours as needed for pain. Lidocaine patch, 5%, apply to R lateral hip for 12 hours and then remove for 12 hours. Continue all other medications as prescribed. You may continue to use your previously prescribed Hydrocodone-Acetaminophen 1 tab every 6 hours as needed for severe pain. (Use sparingly, may cause sedation, do not take together with cyclobenzaprine). Do not drive or operate heavy machinery while taking. You were also previously prescribed cyclobenzaprine, 10mg, three times a day as needed for muscle spasm. (Use sparingly, may cause sedation, do not take together with hydrocodone.) Do not drive or operate heavy machinery while taking. SUMMARY OF TEST RESULTS: You were admitted due to a L2 compression fracture. You underwent surgical procedure, Kyphoplasty, to repair the fracture and aide in pain control. You did require oxygen during your hospital stay due to taking IV pain medications. This resolved with pain control and using incentive spirometry. PENDING TEST RESULTS: None RECOMMENDATIONS FOR FOLLOW-UP: Follow up with PCP as scheduled. Follow up with orthopedics in 2 weeks. At this time they will also address the bursitis of your R leg. Do not lift more than 5 lbs until cleared by orthopedics. Use rolling walker for walking to prevent falls until cleared by orthopedics. Recommend using Tylenol 500mg every 6 hours as needed for pain. You may also use Ice to R lateral leg to aide in pain control. OTHER INSTRUCTIONS: Seek medical attention if you have: * temperature above 101 * chest pain or trouble breathing * abdominal pain, nausea, vomiting * diarrhea, dark stools or bloody stools * any unanswered questions or concerns Call 911 if symptoms are severe. Please take good care of yourself. It has been a pleasure taking care of you. Please take care of yourself. If you have any questions regarding your recent hospitalization please contact [facility] and request Malcom Canales @ [phone]. Catherine Laughlin PA-C Addtl Ict Help Desk Officer Provider Instructions: Patient is avoid lifting more than 5 pounds. She will follow-up in the office in 2 weeks. Pending Studies at Discharge: No Stand-Alone Forms: [facility], Smoking Cessation Medications and DC Order Prescriptions: New diclofenac sodium [Voltaren Arthritis Pain] 1 % Gel 4 g EXT Q6 PRN (Reason: Hip pain) Qty: 100 0RF Rx Instructions: Apply to R lateral hip lidocaine 5 % Adhesive Patch,Medicated 1 patch transdermal QAM Qty: 14 0RF Continued multivitamin [Daily Multi-Vitamin] Tablet 1 tab PO DAILY aspirin 81 mg tablet,delayed release (DR/EC) 81 mg PO DAILY metronidazole 0.75 % cream 1 applic TOP BID Qty: 45 2RF Rx Instructions: Apply to face twice daily as directed. doxycycline hyclate 100 mg capsule 100 mg PO DAILY Qty: 30 2RF Rx Instructions: Take 1 pill once daily with a glass of water. Remain upright for 45 minutes after taking. calcium carbonate [Calcium 600] 600 mg calcium (1,500 mg) tablet 600 mg PO BID lorazepam 0.5 mg tablet 0.5 mg PO HS cyclosporine 0.05 % dropperette 1 drp OP BID ascorbic acid (vitamin C) 500 mg capsule 1 cap PO .TAKE 1 CAPSULE DAILY. cholecalciferol (vitamin D3) 125 mcg (5,000 unit) capsule 125 mcg PO DAILY docusate sodium 100 mg tablet 100 mg PO DAILY PRN (Reason: Constipation) cyclobenzaprine 10 mg tablet 10 mg PO TID PRN (Reason: muscle spasm) Qty: 20 0RF hydrocodone-acetaminophen 5-325 mg tablet 1 - 2 tab PO Q6H PRN (Reason: pain) Qty: 24 0RF Rx Instructions: Initial Treatment Discharge Orders: Discharge Order (Routine); Ordered 07/30/22 Ordered By: Catherine Laughlin Admission Data Admit Date/Time: 07/27/22 16:18 Attending Provider: Lacey Blake Admit Provider: Kenny Trimble Primary Care Provider: Parish Perez Other Providers: Catherine Laughlin ; Kenny Trimble ; Arley Cool ; Milagros Ramires ; Fior Anderson I. Other Interventions: Discharge Summary Assessment (RN) Last Done: 07/30/22 10:57
--- NOTE | 2022-07-30 17:39 | Electrocardiogram Report ---
Test Reason : Blood Pressure : / mmHG Vent. Rate : 105 BPM Atrial Rate : 105 BPM P-R Int : 124 ms QRS Dur : 070 ms QT Int : 332 ms P-R-T Axes : 025 004 019 degrees QTc Int : 438 ms Sinus tachycardia with frequent Premature ventricular complexes Otherwise normal ECG When compared with ECG of 06-AUG-2017 19:22, Premature ventricular complexes are now Present Confirmed by Pranay Rosado ([id number]) on 07/30/2022 5:39:29 PM Referred By: REFERRED SELF Confirmed By:Romario Rosado
== END 2022-07-30 12:12 | disposition home or self-care (01) | DRG 516 ==
LOC: ED 19:20 → 3N 19:20 → SUATTDRO 07-27 16:18

== ENCOUNTER 2025-08-07 06:37 | Observation (INO) ==
--- NOTE | 2025-08-07 06:54 | Emergency Department Note ---
History of Present Illness General Chief complaint: Cardiac Assessment Stated complaint: CHEST PAIN, SOB, BACK PAIN Time Seen by Provider: 08/07/25 06:54 History of Present Illness Maximum Pain Intensity: 8 This is a 65-year-old female that presents to the emergency department via private vehicle with complaints of "chest pain, back pain". Patient presents with . Patient notes that this past she began with pain in the shoulder blade area. She notes initially it was on the right and on the left and now is on both sides. She denies any known trauma or injury. Since that time the pain has now progressed into the chest. She also notes associated dyspnea. She states the pain does worsen when she is in supine position. The patient also notes that she recently prescribed oral Bactrim for treatment of an infection under the right breast/small abscess. The patient denies any fevers or chills. No nausea or vomiting. No abdominal pain. No lower back pain. No history of [place] or PE. Patient does take low-dose aspirin daily. No anticoagulants. Current pain 07/02. Home Medications Medication Instructions Recorded Confirmed Type calcium carbonate (Calcium 600) 1,200 mg PO QAM 06/12/20 08/07/25 History cholecalciferol (vitamin D3) 125 10,000 unit PO QAM 06/12/20 08/07/25 History mcg (5,000 unit) capsule lorazepam 0.5 mg tablet 0.5 mg PO TID 06/12/20 08/07/25 History aspirin 81 mg tablet,delayed 81 mg PO QPM 08/14/20 08/07/25 History release multivitamin (Daily Multi-Vitamin 1 tab PO DAILY 08/14/20 08/07/25 History tablet) acetaminophen 500 mg tablet 500 mg PO UD PRN aches and pains 11/08/23 08/07/25 History clobetasol 0.05 % topical cream 1 applic topical UD PRN Skin 11/08/23 08/07/25 History Irritation clobetasol 0.05 % topical ointment 1 applic topical UD PRN skin 11/08/23 08/07/25 History irritation cyanocobalamin (vitamin B-12) 5,000 mcg sublingual 3XWK 11/08/23 08/07/25 History 5,000 mcg sublingual tablet (Vitamin B-12) cyclosporine 0.05 % eye drops in a 1 drp OPB BID 11/08/23 08/07/25 History dropperette (Restasis) doxycycline hyclate 50 mg capsule 50 mg PO UD PRN dermatology 11/08/23 08/07/25 History instruction/face lidocaine 5 % topical patch 1 patch transdermal UD PRN Pain 11/08/23 08/07/25 History losartan 100 mg tablet 25 mg PO QDD 11/08/23 08/07/25 History furosemide 20 mg tablet (Lasix) 20 mg PO QAM 06/20/25 08/07/25 History ibuprofen 200 mg tablet (Advil) 200 mg PO UD PRN Pain 06/20/25 08/07/25 History lactobacillus combination no.4 3 0 mmu cells PO QAM 06/20/25 08/07/25 History billion cell capsule (Probiotic) magnesium sulfate (bulk) 100 % 1 applic topical UD PRN Pain 06/20/25 08/07/25 History crystals (Epsom Salt) psyllium 1 packet PO UD PRN Constipation 06/20/25 08/07/25 History spironolactone 25 mg tablet 12.5 mg PO QAM 06/20/25 08/07/25 History zinc 50 mg tablet 50 mg PO QAM 06/20/25 08/07/25 History fluconazole 150 mg tablet 150 mg PO UD PRN yeast infection 08/07/25 08/07/25 History sulfamethoxazole 800 0 tab PO UD 08/07/25 08/07/25 History mg-trimethoprim 160 mg tablet Allergies Allergy/AdvReac Type Severity Reaction Status Date / Time adhesive Allergy Unknown RASH Verified 08/07/25 09:11 codeine Allergy Unknown WELTS AND Verified 08/07/25 09:11 ITCHING erythromycin base Allergy Unknown RASH Verified 08/07/25 09:11 latex Allergy Unknown WELTS, Verified 08/07/25 09:11 BLISTERS milk Allergy Unknown I break out Verified 08/07/25 09:11 tetanus toxoid, adsorbed Allergy Unknown CELLULITIS Verified 08/07/25 09:11 AND HYPERTENSION vaccine adjuvant system, Allergy Unknown cellulitis Verified 08/07/25 09:11 [id number] liposomal and [From Shingrix (PF)] hyprtension varicella-zoster virus Allergy Unknown cellulitis Verified 08/07/25 09:11 glycoprotein E, recombinant and [From Shingrix (PF)] hyprtension wheat Allergy Unknown celiac Verified 08/07/25 09:11 morphine AdvReac Unknown n/v Verified 08/07/25 09:11 sulfamethoxazole AdvReac Unknown see note Unverified 08/07/25 09:11 [From Bactrim] trimethoprim [From Bactrim] AdvReac Unknown see note Unverified 08/07/25 09:11 blood pressure medication AdvReac Unknown see notes Uncoded 08/07/25 09:11 Past Med/Surg History Problem List (Updated 08/07/25 @ 11:05 by Harish Welch PA-C) Thyroid nodule Infection of breast, right (Acute) Chest pain (Acute) Bilateral sacroiliitis Pain of right calf (Acute) Closed compression fracture of L2 vertebra (Acute) Osteoporosis Morbid obesity Meniere's disease GERD (gastroesophageal reflux disease) Medical History HTN (hypertension) pt not sure if official dx of htn, reports never really had high blood pressure. hx bleed in left eye (06/2023) and was placed on blood pressure medication - follows Abraham Moore and Dr. Bansal. Chronic SI joint pain History of gastroesophageal reflux (GERD) Meniere's disease Osteoporosis Pt not sure if Osteoporosis or Osteoarthritis History of diverticulitis Surgical History History of surgery dequervains, right History of endoscopy upper History of arthroscopy of left knee History of colonoscopy History of gynecologic surgery ovaries removed - lost 4 units blood. no hx blood transfusion. History of hysterectomy History of kyphoplasty Family History (Updated 06/20/25 @ 12:04 by Adrian Leger RN) Daughter Family history of reaction to anesthesia wakes up crying Social History Smoking Status: Never smoker Do You Dip or Chew Tobacco: No; Hx Alcohol Use: No Hx Substance Use: No Preferred Language: Omani Communication Ability: Effective Student Outreach Coordinator Required: No Beliefs That Will Affect Care: None marital status: Current Living Situation: Spouse Current Living Situation Comment: Tr How many Children do You have: 0 Feels Safe at Home: Yes Assistive Devices: Other Review of Systems A total of 10 systems reviewed and were otherwise negative Physical Exam Vital Signs Vital Signs - 24 hr 08/07/25 06:41 08/07/25 07:00 08/07/25 07:00 Temperature 36.8 C Temperature Source Temporal Artery Scan Pulse Rate 84 Pulse Rate [Apical] 83 Pulse Rhythm Regular Pulse Strength Normal Respiratory Rate 18 16 Respiratory Effort / Characteristics Non-Labored Spontaneous Non-Labored Spontaneous Respiratory Depth Normal Normal Respiratory Pattern Regular Blood Pressure 160/85 H Blood Pressure [Left Arm] 136/80 Blood Pressure Mean 110 Blood Pressure Mean [Left Arm] 98 Blood Pressure Position Sitting Pulse Oximetry 98 95 95 Oxygen Delivery Method Room Air Room Air Room Air Sepsis Recent Fever Within 48 Hours No Sepsis New/Unexplained Change in Mental Status N/A Sepsis Action Taken by Nursing No Action Required 08/07/25 07:01 08/07/25 07:07 08/07/25 09:00 Temperature Temperature Source Pulse Rate 77 85 Pulse Rate [Apical] 81 Pulse Rhythm Pulse Strength Respiratory Rate 16 16 Respiratory Effort / Characteristics Non-Labored Spontaneous Respiratory Depth Normal Respiratory Pattern Regular Blood Pressure Blood Pressure [Left Arm] 134/79 Blood Pressure Mean Blood Pressure Mean [Left Arm] 97 Blood Pressure Position Pulse Oximetry 95 94 Oxygen Delivery Method Room Air Room Air Sepsis Recent Fever Within 48 Hours Sepsis New/Unexplained Change in Mental Status Sepsis Action Taken by Nursing VITAL SIGNS - Vital signs and nursing notes were reviewed. Stable and afebrile. GENERAL - 65-year-old female appearing her stated age who is in no acute distress. Communicates well with provider and answers questions appropriately. SKIN -small, approximate 2 cm in diameter nonraised erythematous region with small ulceration in the center to the right anterior inferior breast area. No fluctuance or crepitus. HEAD - NC/AT. EYES - PERRL with EOMI bilaterally. Sclera anicteric. LUNGS - Chest wall symmetric without accessory muscle use, intercostals retractions, or central cyanosis. Normal vesicular breath sounds CTA B/L. No wheezes, rales, or rhonchi appreciated. CARDIAC - RRR with S1/S2. No murmur, rubs, or gallops appreciated. MSKthere is reproducible tenderness to palpation overlying the paraspinous musculature of the thoracic spine extending into the scapular regions. ABDOMEN - Abdominal contour normal without pulsations or visible masses. BS normoactive all four quadrants. No tenderness, palpable masses, hepatosplenomegaly, or ascites noted. EXTREMITIES - No clubbing or peripheral cyanosis. +5/5 strength noted in UE/LE bilaterally. NEUROLOGIC - Cranial nerves II through XII grossly intact. PSYCH -alert, oriented and pleasant on exam Course Administered Medications Discontinued Medications Ioversol (Optiray 320 125ml) 112 ml IV ONCE ONE Stop: 08/07/25 08:38 Last Admin: 08/07/25 08:37 Dose: 112 ml Documented By: MARILYNN Medical Decision Making Laboratory Data 08/07/25 06:58 08/07/25 06:58 Lab Results 08/07/25 08/07/25 Range/Units 06:58 07:53 WBC 9.07 (4.8-10.8) K/ul RBC 5.40 (4.20-5.40) M/uL Hgb 15.5 (12.0-16.0) g/dl Hct 49.9 H (37.0-47.0) % MCV 92.4 (80.0-100.0) fL MCH 28.7 (25.0-34.0) pg MCHC 31.1 L (32.0-36.0) g/dL RDW Std Deviation 45.6 (36.4-46.3) fL RDW Coeff of Jose Antonio 13.4 (11.5-14.5) % Plt Count 320 (130-400) K/uL MPV 8.9 L (9.4-12.4) fL Immature Gran % (Auto) 0.3 % Neut % (Auto) 67.3 % Lymph % (Auto) 20.0 % Ashley % (Auto) 9.9 % Eos % (Auto) 1.9 % Baso % (Auto) 0.6 % Neut # (Auto) 6.11 (1.40-6.50) K/uL Lymph # (Auto) 1.81 (1.20-3.40) K/uL Ashley # (Auto) 0.90 H (0.11-0.59) K/uL Eos # (Auto) 0.17 (0.00-0.50) K/uL Baso # (Auto) 0.05 (0.00-0.20) K/uL Immature Gran # (Auto) 0.03 (0.01-0.20) K/uL PT 10.5 (9.0-12.0) Seconds INR 1.0 (0.9-1.1) APTT 29 (21-31) Seconds PTT Ratio 1.1 Sodium 139 (136-145) mmol/L Potassium 4.0 (3.5-5.1) mmol/L Chloride 101 (98-107) mmol/L Carbon Dioxide 29 (21-32) mmol/L Anion Gap 9 (3-11) BUN 17 (6-23) mg/dl Creatinine 0.77 (0.6-1.2) mg/dl Est Cr Clr Drug Dosing 100.0 ml/min eGFR 84.49 BUN/Creatinine Ratio 22.1 H (10-20) Glucose 130 H (70-99(Fasting)) mg/dl Calcium 9.7 (8.6-10.3) mg/dl Magnesium 2.3 (1.7-2.4) mg/dl Total Bilirubin 1.0 (0.2-1.0) mg/dl AST 18 (13-39) U/L ALT 23 (7-52) U/L Alkaline Phosphatase 85 (34-104) U/L Troponin I High Sens 8.0 (0-14) pg/ml B-Natriuretic Peptide 34 (0-100) pg/ml Total Protein 8.0 (6.0-8.3) gm/dl Albumin 4.6 (3.4-5.0) gm/dl Globulin 3.4 (2.5-4.0) gm/dl Albumin/Globulin Ratio 1.4 (0.9-2) Lipase 16 (11-82) U/L Procalcitonin 0.09 (0-0.5) ng/ml TSH 2.174 (0.300-4.500) uIu/ml Urine Color Yellow Urine Appearance Cloudy A (Clear) Urine pH 5.5 (4.5-7.5) Ur Specific [place] 1.012 (1.000-1.030) Urine Protein Negative (Negative) Urine Glucose (UA) Negative (Negative) Urine Ketones Negative (Negative) Urine Blood Negative (Negative) Urine Nitrite Negative (Negative) Urine Bilirubin Negative (Negative) Urine Urobilinogen Negative (Negative) Ur Leukocyte Esterase Negative (Negative) Urine WBC (Auto) 0-5 (0-5) /hpf Urine RBC (Auto) 0-2 (0-2) /hpf U Hyaline Cast (Auto) 0-2 (0-2) /lpf U Epithel Cells (Auto) 0-2 (0-2) /hpf Urine Bacteria (Auto) None Seen (None Seen) Urine Comment Imaging Data Radiologist's Impression: Chest X-Ray 08/07/25 07:07 EXAM: XR chest 1V portable CLINICAL HISTORY: Chest and back pain TECHNIQUE: An X-ray image of the chest is obtained in AP projection. COMPARISON: 11/08/2023 FINDINGS: Pulmonary Parenchyma: Lungs are clear bilaterally. No evidence of consolidation, collapse, or focal opacities. No pulmonary nodules are identified. No evidence of right pleural effusion or pleural thickening. Obscuration of the left costophrenic angle could be a prominent epicardial fat pad. Heart and Mediastinum: Mildly enlarged cardiac shadow. No mediastinal widening or masses. No hilar or mediastinal lymphadenopathy. Bony Thorax: Bony thorax appears intact without fractures or deformities. Soft Tissues: Soft tissues overlying the chest wall are unremarkable. IMPRESSION: 1. Obscuration of the left costophrenic angle could be a prominent epicardial fat pad. 2. No acute cardiopulmonary abnormalities are identified. 3. No interval changes. Electronically signed by Abdifatah Carreon 08-07-2025 08:26 AM Chest CTA 08/07/25 07:08 CT ANGIOGRAM OF THE CHEST CLINICAL HISTORY: Dyspnea. Chest pain. Back pain. COMPARISON STUDY: Chest CT dated 11/08/2023. Chest x-ray dated 08/07/2025. TECHNIQUE: Following the IV administration of 112 cc of Optiray 320, CT angiogram of the chest was performed from the upper abdomen to the thoracic inlet utilizing the pulmonary embolus protocol. Images are reviewed in the axial, sagittal, and coronal planes. 3-D MIPS images are created and assessed. IV contrast was administered without complication. A dose lowering technique was utilized adhering to the principles of ALARA. The examination is degraded by large body habitus, and by streak artifact from the body wall abutting the CT gantry. There is also motion artifact. CT DOSE: 924.56 mGy.cm FINDINGS: Thyroid: Enlarged and heterogeneous. A 3 cm nodule is seen in the left lobe. Thoracic aorta: The thoracic aorta is normal in caliber and demonstrates bovine variant arch anatomy. No dissection is seen. Pulmonary vasculature: The pulmonary trunk is normal in caliber. There are no filling defects identified in main, lobar, or proximal segmental pulmonary branches to suggest pulmonary embolus. Heart: The heart is enlarged noting trace pericardial effusion. Lungs and pleural spaces: Evaluation of the lung parenchyma is degraded by motion artifact. No airspace consolidation or pleural effusion is identified. Scarring/atelectasis is noted at the lung bases. The trachea and central airways are clear. There are scattered calcified granulomas. Mediastinum: There is no mediastinal lymphadenopathy. Chloe: Clear. Axillae: There is no axillary lymphadenopathy. Upper abdomen: Cholecystectomy clips are noted. Partially visualized upper abdominal viscera is otherwise grossly unremarkable. Skeletal structures: The skeletal structures are osteopenic. No lytic or blastic bony lesions are seen. A mild chronic superior endplate compression deformity of L1 is unchanged. IMPRESSION: 1. Streak and motion degraded examination. 2. There is no evidence of central pulmonary embolus in the main, lobar, or proximal segmental pulmonary arteries. Evaluation of the peripheral branches is significantly degraded by streak and motion artifact. 3. There is no airspace consolidation or pleural effusion. 4. Cardiomegaly. 5. There is a 3 cm left lobe thyroid nodule. If not previously performed a thyroid ultrasound is recommended in follow-up. 6. Additional findings as above. ACT 112: Negative or not required by law. Electronically signed by: Cristino Adan M.D. 08/07/2025 9:04 AM MDM Narrative Patient was seen and evaluated as above in room A3. Review was performed of triage nursing notes and vital signs. I did review pertinent previous visits and patient history. After obtaining a thorough history and physical examination the above work up was performed. Patient presents to us today for evaluation of pain in the upper back area and chest. There is associated dyspnea. Please see HPI for full details. The patient does yield stable vital signs. EKG was performed and per my interpretation reveals normal sinus rhythm at a rate of 86 bpm. QTc 411. QRS 74. No ST elevation on this rhythm tracing. Options of care were discussed with the patient. IV access was established. Labs were drawn. Chest x-ray was obtained. Per my interpretation this was without acute process, similar to previous chest x-ray in the EMR dated 2022. Patient was offered analgesia and respectfully declined. There is no leukocytosis or concerning anemia. Coags normal. No emergent metabolic disturbance. Hyperglycemia 130. Troponin negative. BNP negative. Lipase normal. Procalcitonin normal. TSH normal. Urinalysis without sign of infection. CT PE study was performed to further assess this patient's chest pain and upper back pain. This was overall negative from an emergent standpoint. I did discuss the incidental 3 cm left thyroid nodule and outpatient follow-up ultrasound is recommended. At this time noting the patient's chest pain and associated cardiac risk factors I do believe that further evaluation and management in the inpatient setting is warranted. Case discussed with the hospitalist service. Please refer to further documentation regarding her stay. GCS: 15 In the evaluation and treatment of this patient the following differential diagnoses were entertained: [place], PE, pericarditis, costochondritis, heart failure, dissection, among others Impression & Plan Chest pain, Infection of breast, right Discharge Plan Visit Data Chief Complaint: Cardiac Assessment Stated Complaint: CHEST PAIN, SOB, BACK PAIN ED Provider: Hammad Parada ED Midlevel Provider: Harish Welch Discharge Problem: Chest pain, Infection of breast, right Patient Disposition: Admitted As Inpatient Condition: Good Discharge Instructions Interventions: ED Discharge Assessment Last Done: 08/07/25 10:36
--- NOTE | 2025-08-07 07:23 | Emergency Department Note ---
ED Visit Note ED Physician Supervisory Note & Attestation: I was consulted by the Advanced Practice Provider, Harish Welch PA-C. I personally made/approved the management plan and take responsibility for the patient management. I performed a substantive portion of the visit. This includes the aspects of: MDM: 65-year-old female with history of hypertension arrives for evaluation of left upper chest pain which initially started as back pain. This has been ongoing for several days now at this point though gradually worsening. Imaging: X ray results are stated below per my interpretation: Chest: 1 view: No infiltrate, no effusion, mildly enlarged cardiac border. EKG: As per my interpretation. Indication chest pain. Normal sinus rhythm at 86 bpm QTc of 411. There is no ectopy nor overt ischemic findings. Overall morphology is similar to EKG of November 08, 2023 though T waves inferiorly are more pronounced. 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 Pereira and plan for hospitalization. Hammad Parada MD
[2025-08-07 07:27] LABS: Hematocrit (blood only) 49.9 % (37.0-47.0); Hemoglobin 15.5 g/dl (12.0-16.0); Immature Granulocytes # (auto) 0.03 K/uL (0.01-0.20); Immature Granulocytes % (auto) 0.3 %; Mean Corpuscular Hemoglobin 28.7 pg (25.0-34.0); Mean Corpuscular Volume 92.4 fL (80.0-100.0); Platelet Count 320 K/uL (130-400); RDW Standard Deviation 45.6 fL (36.4-46.3); Red Blood Count 5.40 M/uL (4.20-5.40); White Blood Count 9.07 K/ul (4.8-10.8)
[2025-08-07 07:47] LABS: Alanine Aminotransferase 23.0 U/L (7-52); Albumin Globulin Ratio 1.4 (0.9-2); Alkaline Phosphatase 85.0 U/L (34-104); Anion Gap 9.0 (3-11); Bilirubin,Total 1.0 mg/dl (0.2-1.0); Blood Urea Nitrogen 17.0 mg/dl (6-23); Calcium 9.7 mg/dl (8.6-10.3); Carbon Dioxide 29.0 mmol/L (21-32); Chloride 101.0 mmol/L (98-107); Creatinine Clr Calc Pharmacy 100.0 ml/min; Globulin 3.4 gm/dl (2.5-4.0); Glucose 130.0 mg/dl (70-99(Fasting)); Lipase 16.0 U/L (11-82); Magnesium 2.3 mg/dl (1.7-2.4); Potassium 4.0 mmol/L (3.5-5.1); Sodium 139.0 mmol/L (136-145); Total Protein 8.0 gm/dl (6.0-8.3)
[2025-08-07 08:16] LABS: INR 1.0 (0.9-1.1); Partial Thromboplastin Time 29 Seconds (21-31); Prothrombin Time 10.5 Seconds (9.0-12.0)
--- NOTE | 2025-08-07 08:26 | XRay Report ---
EXAM: XR chest 1V portable CLINICAL HISTORY: Chest and back pain TECHNIQUE: An X-ray image of the chest is obtained in AP projection. COMPARISON: 11/08/2023 FINDINGS: Pulmonary Parenchyma: Lungs are clear bilaterally. No evidence of consolidation, collapse, or focal opacities. No pulmonary nodules are identified. No evidence of right pleural effusion or pleural thickening. Obscuration of the left costophrenic angle could be a prominent epicardial fat pad. Heart and Mediastinum: Mildly enlarged cardiac shadow. No mediastinal widening or masses. No hilar or mediastinal lymphadenopathy. Bony Thorax: Bony thorax appears intact without fractures or deformities. Soft Tissues: Soft tissues overlying the chest wall are unremarkable. IMPRESSION: 1. Obscuration of the left costophrenic angle could be a prominent epicardial fat pad. 2. No acute cardiopulmonary abnormalities are identified. 3. No interval changes. Electronically signed by Abdifatah Carreon 08-07-2025 08:26 AM
[2025-08-07] MEDS: OPTIRAY 320 125ml IV ONE (08:37)
--- NOTE | 2025-08-07 09:06 | CT Scan Report ---
CT ANGIOGRAM OF THE CHEST CLINICAL HISTORY: Dyspnea. Chest pain. Back pain. COMPARISON STUDY: Chest CT dated 11/08/2023. Chest x-ray dated 08/07/2025. TECHNIQUE: Following the IV administration of 112 cc of Optiray 320, CT angiogram of the chest was pe rformed from the upper abdomen to the thoracic inlet utilizing the pulmonary embolus protocol. Images are reviewed in the axial, sagittal, and coronal planes. 3-D MIPS images are created and assessed. I V contrast was administered without complication. A dose lowering technique was utilized adhering to the principles of ALARA. The examination is degraded by large body habitus, and by streak artifact f rom the body wall abutting the CT gantry. There is also motion artifact. CT DOSE: 924.56 mGy.cm FINDINGS: Thyroid: Enlarged and heterogeneous. A 3 cm nodule is seen in the left lobe. Thoracic aorta: The thoracic aorta is normal in caliber and demonstrates bovine variant arch anatomy. No dissection is seen. Pulmonary vasculature: The pulmonary trunk is normal in caliber. There are no filling defects identif ied in main, lobar, or proximal segmental pulmonary branches to suggest pulmonary embolus. Heart: The heart is enlarged noting trace pericardial effusion. Lungs and pleural spaces: Evaluation of the lung parenchyma is degraded by motion artifact. No airspa ce consolidation or pleural effusion is identified. Scarring/atelectasis is noted at the lung bases. The trachea and central airways are clear. There are scattered calcified granulomas. Mediastinum: There is no mediastinal lymphadenopathy. Chloe: Clear. Axillae: There is no axillary lymphadenopathy. Upper abdomen: Cholecystectomy clips are noted. Partially visualized upper abdominal viscera is other daniel grossly unremarkable. Skeletal structures: The skeletal structures are osteopenic. No lytic or blastic bony lesions are see n. A mild chronic superior endplate compression deformity of L1 is unchanged. IMPRESSION: 1. Streak and motion degraded examination. 2. There is no evidence of central pulmonary embolus in the main, lobar, or proximal segmental pulmon talib arteries. Evaluation of the peripheral branches is significantly degraded by streak and motion ar tifact. 3. There is no airspace consolidation or pleural effusion. 4. Cardiomegaly. 5. There is a 3 cm left lobe thyroid nodule. If not previously performed a thyroid ultrasound is giovanny mmended in follow-up. 6. Additional findings as above. ACT 112: Negative or not required by law. Electronically signed by: Cristino Adan M.D. 08/07/2025 9:04 AM
[2025-08-07 09:11] LABS: Appearance Urine Cloudy (Clear); Bacteria Urine Automated None Seen (None Seen); Cast Urine Automated 0-2 /lpf (0-2); Epithelial Cell Urine Auto 0-2 /hpf (0-2); Glucose Urine UA Negative (Negative); WBC Urine Automated 0-5 /hpf (0-5)
[2025-08-07 09:33] LABS: RBC Urine Automated 0-2 /hpf (0-2)
--- NOTE | 2025-08-07 10:25 | History & Physical Report ---
"Date of Service August 07, 2025 Assessment & Plan (1) Chest pain: (2) Infection of breast, right: (3) Thyroid nodule: (4) HTN (hypertension): Khloe Kwon is a pleasant 65-year-old woman with past medical history of hypertension, GERD, Mnire's disease, osteoporosis, bilateral sacroiliitis, and chronic SI joint pain. A week prior to admission she was started on Bactrim for an infection/small abscess under her right breast. She then developed musculoskeletal upper back pain that progressed into central chest pain with associated shortness of breath. Dyspnea is worse when lying supine and chest pain is exacerbated by movement. Workup in ED overall unremarkable. She was admitted for further cardiac workup. #Chest pain | Upper back pain - Chest CTA on admission without evidence of PE, consolidation, or pleural effusion - Troponin normal at 8.0, BNP normal at 34 - EKG with NSR, no ischemic changes - Toradol 15 mg IV Q6h PRN pain - Echocardiogram ordered on admission - Please note cardiology consultedfollows with them outpatient - Will likely need chemical stress test, but will defer this to cardiology. Patient has difficulty ambulating given recent back surgery and upcoming hip injections #Right breast infection - started on Bactrim outpatient. Appears to be improving on exam - Low suspicion that Bactrim is the cause of her chest pain, but given its correlation with her symptoms, will switch to Keflex 500 mg 4 times daily - Local wound care as needed #Thyroid nodule3 cm left lobe thyroid nodule incidentally noted on chest CTA - TSH WNL - Thyroid ultrasound pending #HypertensionBP well-controlled. Continue losartan 25 mg HS, Lasix 20 mg daily, spironolactone 12.5 mg daily #Vitamin D deficiencycontinue cholecalciferol supplement daily #Vitamin B-12 deficiencycontinue cyanocobalamin 3 times weekly #Anxietycontinue home lorazepam 0.5 mg 3 times daily as needed Dispo: Observation on med/tele VTE PPx: Lovenox updated at bedside on admission History of Present Illness Chief Complaint: Chest and back pain Primary Care Provider: Parish Kwon is a pleasant 65-year-old woman with past medical history of hypertension, GERD, Mnire's disease, osteoporosis, bilateral sacroiliitis, and chronic SI joint pain. She presented from home with chest and back pain. At the time of my exam, the patient was lying in bed in no acute distress with her present at bedside. She states last week she began having pain under her right breast and was started on Bactrim on Wednesday 08/01 for an infection/small abscess. Then on 08/03, she began having pain in her shoulder blade area and attributed this to musculoskeletal related pain. This progressed into her central chest on Sunday 08/05 and has persisted since then. Her chest pain is exacerbated by movement/activity. She also has associated dyspnea that is worse when lying supine. She has never experienced this type of pain previously. She denies trauma, injury, or inciting event. Denies fever, chills, body aches. Denies headache, nausea, vomiting, abdominal pain, lower back pain, urinary symptoms. Patient reports that she did not take her regular morning medications today, will order now; no recent change in medications. She does not use supplemental oxygen at baseline. No CPAP at night. Vitals on admission are stable. Labs on admission are overall unremarkable. No leukocytosis. No anemia. Electrolytes are normal. Renal function is normal. LFTs are normal. Troponin normal at 8.0. BNP normal at 34. Procalcitonin negative at 0.09. UA negative. Chest CTA on admission is somewhat limited due to streak and motion but reveals no evidence of PE, consolidation, or pleural effusion; incidentally notes a 3 cm left lobe thyroid nodule (thyroid ultrasound recommended). CXR notes obscuration of the left costophrenic angle could be a predominant epicardial fat pad, otherwise no acute abnormalities identified. We discussed code status, patient wishes to be a full code. Allergies Allergy/AdvReac Type Severity Reaction Status Date / Time adhesive Allergy Unknown RASH Verified 08/07/25 09:11 codeine Allergy Unknown WELTS AND Verified 08/07/25 09:11 ITCHING erythromycin base Allergy Unknown RASH Verified 08/07/25 09:11 latex Allergy Unknown WELTS, Verified 08/07/25 09:11 BLISTERS milk Allergy Unknown I break out Verified 08/07/25 09:11 tetanus toxoid, adsorbed Allergy Unknown CELLULITIS Verified 08/07/25 09:11 AND HYPERTENSION vaccine adjuvant system, Allergy Unknown cellulitis Verified 08/07/25 09:11 AS01B liposomal and [From Shingrix (PF)] hyprtension varicella-zoster virus Allergy Unknown cellulitis Verified 08/07/25 09:11 glycoprotein E, recombinant and [From Shingrix (PF)] hyprtension wheat Allergy Unknown celiac Verified 08/07/25 09:11 morphine AdvReac Unknown n/v Verified 08/07/25 09:11 sulfamethoxazole AdvReac Unknown see note Unverified 08/07/25 09:11 [From Bactrim] trimethoprim [From Bactrim] AdvReac Unknown see note Unverified 08/07/25 09:11 blood pressure medication AdvReac Unknown see notes Uncoded 08/07/25 09:11 Home Medications Medication Instructions Recorded Confirmed Type calcium carbonate (Calcium 600) 1,200 mg PO QAM 06/12/20 08/07/25 History cholecalciferol (vitamin D3) 125 10,000 unit PO QAM 06/12/20 08/07/25 History mcg (5,000 unit) capsule lorazepam 0.5 mg tablet 0.5 mg PO TID 06/12/20 08/07/25 History aspirin 81 mg tablet,delayed 81 mg PO QPM 08/14/20 08/07/25 History release multivitamin (Daily Multi-Vitamin 1 tab PO DAILY 08/14/20 08/07/25 History tablet) acetaminophen 500 mg tablet 500 mg PO UD PRN aches and pains 11/08/23 08/07/25 History clobetasol 0.05 % topical cream 1 applic topical UD PRN Skin 11/08/23 08/07/25 History Irritation clobetasol 0.05 % topical ointment 1 applic topical UD PRN skin 11/08/23 08/07/25 History irritation cyanocobalamin (vitamin B-12) 5,000 mcg sublingual 3XWK 11/08/23 08/07/25 History 5,000 mcg sublingual tablet (Vitamin B-12) cyclosporine 0.05 % eye drops in a 1 drp OPB BID 11/08/23 08/07/25 History dropperette (Restasis) doxycycline hyclate 50 mg capsule 50 mg PO UD PRN dermatology 11/08/23 08/07/25 History instruction/face lidocaine 5 % topical patch 1 patch transdermal UD PRN Pain 11/08/23 08/07/25 History losartan 100 mg tablet 25 mg PO QDD 11/08/23 08/07/25 History furosemide 20 mg tablet (Lasix) 20 mg PO QAM 06/20/25 08/07/25 History ibuprofen 200 mg tablet (Advil) 200 mg PO UD PRN Pain 06/20/25 08/07/25 History lactobacillus combination no.4 3 0 mmu cells PO QAM 06/20/25 08/07/25 History billion cell capsule (Probiotic) magnesium sulfate (bulk) 100 % 1 applic topical UD PRN Pain 06/20/25 08/07/25 History crystals (Epsom Salt) psyllium 1 packet PO UD PRN Constipation 06/20/25 08/07/25 History spironolactone 25 mg tablet 12.5 mg PO QAM 06/20/25 08/07/25 History zinc 50 mg tablet 50 mg PO QAM 06/20/25 08/07/25 History fluconazole 150 mg tablet 150 mg PO UD PRN yeast infection 08/07/25 08/07/25 History sulfamethoxazole 800 0 tab PO UD 08/07/25 08/07/25 History mg-trimethoprim 160 mg tablet Past Med/Surg History Problem List (Updated 08/07/25 @ 11:05 by Harish Welch PA-C) Thyroid nodule Infection of breast, right (Acute) Chest pain (Acute) Bilateral sacroiliitis Pain of right calf (Acute) Closed compression fracture of L2 vertebra (Acute) Osteoporosis Morbid obesity Meniere's disease GERD (gastroesophageal reflux disease) Medical History HTN (hypertension) pt not sure if official dx of htn, reports never really had high blood pressure. hx bleed in left eye (06/2023) and was placed on blood pressure medication - follows Abraham Moore and Dr. Bansal. Chronic SI joint pain History of gastroesophageal reflux (GERD) Meniere's disease Osteoporosis Pt not sure if Osteoporosis or Osteoarthritis History of diverticulitis Surgical History History of surgery dequervains, right History of endoscopy upper History of arthroscopy of left knee History of colonoscopy History of gynecologic surgery ovaries removed - lost 4 units blood. no hx blood transfusion. History of hysterectomy History of kyphoplasty Family History (Updated 06/20/25 @ 12:04 by Adrian E Leger, RN) Daughter Family history of reaction to anesthesia wakes up crying Social History Smoking Status: Never smoker Do You Dip or Chew Tobacco: No; Hx Alcohol Use: No Hx Substance Use: No Preferred Language: German Communication Ability: Effective Mental Health Worker Required: No Beliefs That Will Affect Care: None marital status: Current Living Situation: Spouse Current Living Situation Comment: Tr How many Children do You have: 0 Feels Safe at Home: Yes Assistive Devices: Other Review of Systems Review of Systems: All systems reviewed & are unremarkable except as noted in HPI & below Respiratory: + dyspnea on exertion Cardiovascular: + chest pain at rest and + chest pain wi th activity Physical Exam Physical Exam: General: No acute distress, nondiaphoretic, well-developed, well-nourished. Class III obesity/central obesity. Skin: Warm, dry. Small 2 cm nontender, erythematous region with minor ulceration in the center without purulent drainage is present in the right anteroinferior breast area. No peripheral edema noted. Cardiac: Regular rate and rhythm without murmurs gallops or rubs. Diffuse tenderness to palpation of chest wall. Pulm: Clear to auscultation bilaterally without wheezes, rales or rhonchi. Normal respiratory effort. 94% on room air. Abdominal: Soft, nontender, nondistended. Bowel sounds present. Neuro: A&O x3. No focal neurological deficits. Results & Data Results & Data Vital Signs (Past 12 Hours) Vital Signs Temp Pulse Pulse Resp BP BP Pulse Ox 08/07/25 09:00 81 16 134/79 94 08/07/25 07:07 85 16 95 08/07/25 07:01 77 08/07/25 07:00 83 16 136/80 95 08/07/25 07:00 95 08/07/25 06:41 98.2 F 84 18 160/85 H 98 O2 Del Method 08/07/25 09:00 Room Air 08/07/25 07:07 Room Air 08/07/25 07:01 08/07/25 07:00 Room Air 08/07/25 07:00 Room Air 08/07/25 06:41 Room Air Laboratory Results Reviewed CBC with differential Reviewed coags Reviewed CMP, chemistries Reviewed UA Diagnostic Findings Reviewed EKG, CXR, chest CTA PG Care Time/CCT Total # of Minutes Spent Total Time Spent with Patient: Total time spent is greater than 50% in coordination of care (as documented) at patient's floor/unit and/or counseling patient: Coding Level of Care Code 95808 INT INP/OBS CARE 3/75MIN Diagnoses Chest pain R07.9 Infection of breast, right N61.0 Thyroid nodule E04.1 HTN (hypertension) I10"
[2025-08-07] MEDS ORDERED: CLOBETASOL PROPIONATE 0.05% OINT 15 GM TUBE EXT PRN (10:36)
[2025-08-07] MEDS ORDERED: ONDANSETRON INJ 2 MG/ML 2 ML VIAL IV PRN (10:36)
[2025-08-07] MEDS ORDERED: ALUMINUM/MAGNESIUM SUSP 30 ML UDC PO PRN (10:36)
[2025-08-07] MEDS ORDERED: POLYETHYLENE (MIRALAX) 17 GM PACK PO PRN (10:36)
[2025-08-07] MEDS ORDERED: CLOBETASOL PROPIONATE 0.05% CREAM 15 GM TUBE TOP PRN (10:36)
[2025-08-07 11:02] LABS: Thyroid Stimulating Hormone 2.174 uIu/ml (0.300-4.500)
[2025-08-07] MEDS: SPIRONOLACTONE 12.5 MG TAB PO ONE (12:09)
[2025-08-07] MEDS: FUROSEMIDE 20 MG TAB PO STA (12:09)
[2025-08-07] MEDS: CHOLECALCIFEROL 125 MCG (5,000 UNITS) TAB PO STA (12:10)
--- NOTE | 2025-08-07 13:18 | Cardiology Consultation ---
Date of Consultation August 07, 2025 Assessment & Plan (1) Chest pain: (2) Infection of breast, right: Plan Patient is a 65 year old female admitted to [facility] after several days of back pain, shoulder pain and then chest pain. Symptoms started about 5 days ago, shortly after finding an abscess under her right breast and shortly after starting Bactrim therapy. Prior to this, patient was walking/active and without exertional chest pain. Over the next few days while on antibiotic therapy, patient developed migratory "aches and pains" often in her back, and her shoulders, then starting in her chest yesterday. Symptoms reproducible with palpation to the area and with movement. No fever or chills. Chest CTA was negative for PE. No acute findings. EKG on admission with isolated T wave abnormality in lead III. No acute ischemic changes noted. HS troponin negative x1. Repeat pending Echo with preserved LVEF, no wall motion abnormalities. CP is likely musculoskeletal in nature based on description and examination. At this time, would recommend ongoing treatment of her infectious process. Her symptoms are very atypical and not indicative of cardiac etiology. Would consider wound culture given + drainage at site. She was transitioned from Bactrim to Keflex due to potential side effects Continue antibiotics. Her BP is well controlled She appears euvolemic Continue same cardiac medications including ASA, losartan, spironolactone, furosemide. She appears euvolemic. Case discussed with Dr. Thakkar I spent a total of 60 minutes on the date of service in preparation, delivery, and documentation of the care provided to this patient, excluding any time spent in the performance of separately billed services. Debbie Betancourt PA-C Department of Cardiology, [facility] This chart was completed in part utilizing Speech Voice Recognition Software. Grammatical errors, random word insertions, pronoun errors, and incomplete sentences are an occasional consequence of this system due to software limitations, ambient noise, and hardware issues. Any formal questions or concerns about the content, text, or information contained within the body of this dictation should be directly addressed to the provider for clarification. Supervising Physician Co-Signing Physician Notes I have personally performed a history and physical examination on the patient. I have reviewed the advance practitioner's documentation, and I agree with, and take responsibility for the plan of care. 65-year-old female admitted with atypical chest discomfort and infectious process, possible abscess recently treated with Bactrim. No evidence of acute coronary syndrome. Recommend further risk stratification with dobutamine stress echo. N.p.o. except medications after midnight. Benigno Thakkar DO, [facility] I spent a total of 30 minutes on the date of service in preparation, delivery, and documentation of the care provided to this patient, excluding any time spent in the performance of separately billed services. History of Present Illness Reason for Consultation: Atypical Chest pain Requesting Physician: Rowena Gupta Hospitalist Attending Physician: Benigno Pereira MD History of Present Illness Patient is a 65 year old female admitted to [facility] with complaints of chest pain, shoulder pain, and abscess under her right breast. Last week patient reported large/painful "boil" under her right breast. She reportedly squeezed it and "pus" came out. She notified her PCP and started on Bactrim. After starting medication, patient reports she began to have "odd symptoms" of migrating back in her upper back, b/l shoulders, and then chest pain that started yesterday. Chest pain is worse with movement of her upper body, repositioning in bed, or reproducible with palpation to the area. Also mild pleuritic component where she has sharp pain on the left side of her chest with deep inspiration. No fever or chills reported. She denies orthopnea, PND or edema. Due to persistent pain in her chest and back, she came to the ER. She still has abscess under her right breast. +drainage. No culture done. Bactrim was switched to Keflex on admission due to potential side effects of Bactrim. Patient attributes her symptoms over the last few days to the Bactrim, as her symptoms started and worsened the longer she was on it. WBC was normal on arrival. EKG demonstrated normal sinus rhythm, normal EKG HS troponin negative x1. Repeat pending At time of consult, patient with ongoing reproducible symptoms of chest pain. Just received Toradol. Symptoms exacerbated by movement and palpation. No SOB. No palpitations. History includes: 1. Hypertension, hypertensive heart disease 2. HFpEF with diastolic dysfunction 3. Branch retinal vein occlusion 4. Mild atherosclerotic calcification of the thoracic aorta via November 08, 2023 chest CTA 5. Mildly abnormal LFT's imaging with hepatic steatosis 6. Vertigo, Meniere's disease 7. Lower back pain s/p spinal denervation in June 2025 with improvement in her symptoms. 8. Morbid obesity Allergies Allergy/AdvReac Type Severity Reaction Status Date / Time adhesive Allergy Unknown RASH Verified 08/07/25 11:52 codeine Allergy Unknown WELTS AND Verified 08/07/25 11:52 ITCHING erythromycin base Allergy Unknown RASH Verified 08/07/25 11:52 latex Allergy Unknown WELTS, Verified 08/07/25 11:52 BLISTERS milk Allergy Unknown I break out Verified 08/07/25 11:52 tetanus toxoid, adsorbed Allergy Unknown CELLULITIS Verified 08/07/25 11:52 AND HYPERTENSION vaccine adjuvant system, Allergy Unknown cellulitis Verified 08/07/25 11:52 AS01B liposomal and [From Shingrix (PF)] hyprtension varicella-zoster virus Allergy Unknown cellulitis Verified 08/07/25 11:52 glycoprotein E, recombinant and [From Shingrix (PF)] hyprtension wheat Allergy Unknown celiac Verified 08/07/25 11:52 morphine AdvReac Unknown n/v Verified 08/07/25 11:52 sulfamethoxazole AdvReac Unknown see note Verified 08/07/25 11:52 [From Bactrim] trimethoprim [From Bactrim] AdvReac Unknown see note Verified 08/07/25 11:52 blood pressure medication AdvReac Unknown see notes Uncoded 08/07/25 11:52 Home Medications Medication Instructions Recorded Confirmed Type calcium carbonate (Calcium 600) 1,200 mg PO QAM 06/12/20 08/07/25 History cholecalciferol (vitamin D3) 125 10,000 unit PO QAM 06/12/20 08/07/25 History mcg (5,000 unit) capsule lorazepam 0.5 mg tablet 0.5 mg PO TID 06/12/20 08/07/25 History aspirin 81 mg tablet,delayed 81 mg PO QPM 08/14/20 08/07/25 History release multivitamin (Daily Multi-Vitamin 1 tab PO DAILY 08/14/20 08/07/25 History tablet) acetaminophen 500 mg tablet 500 mg PO UD PRN aches and pains 11/08/23 08/07/25 History clobetasol 0.05 % topical cream 1 applic topical UD PRN Skin 11/08/23 08/07/25 History Irritation clobetasol 0.05 % topical ointment 1 applic topical UD PRN skin 11/08/23 08/07/25 History irritation cyanocobalamin (vitamin B-12) 5,000 mcg sublingual [id number] 11/08/23 08/07/25 History 5,000 mcg sublingual tablet (Vitamin B-12) cyclosporine 0.05 % eye drops in a 1 drp OPB BID 11/08/23 08/07/25 History dropperette (Restasis) doxycycline hyclate 50 mg capsule 50 mg PO UD PRN dermatology 11/08/23 08/07/25 History instruction/face lidocaine 5 % topical patch 1 patch transdermal UD PRN Pain 11/08/23 08/07/25 History losartan 100 mg tablet 25 mg PO QDD 11/08/23 08/07/25 History furosemide 20 mg tablet (Lasix) 20 mg PO QAM 06/20/25 08/07/25 History ibuprofen 200 mg tablet (Advil) 200 mg PO UD PRN Pain 06/20/25 08/07/25 History lactobacillus combination no.4 3 0 mmu cells PO QAM 06/20/25 08/07/25 History billion cell capsule (Probiotic) magnesium sulfate (bulk) 100 % 1 applic topical UD PRN Pain 06/20/25 08/07/25 History crystals (Epsom Salt) psyllium 1 packet PO UD PRN Constipation 06/20/25 08/07/25 History spironolactone 25 mg tablet 12.5 mg PO QAM 06/20/25 08/07/25 History zinc 50 mg tablet 50 mg PO QAM 06/20/25 08/07/25 History fluconazole 150 mg tablet 150 mg PO UD PRN yeast infection 08/07/25 08/07/25 History sulfamethoxazole 800 0 tab PO UD 08/07/25 08/07/25 History mg-trimethoprim 160 mg tablet Patient History Medical History HTN (hypertension) pt not sure if official dx of htn, reports never really had high blood pressure. hx bleed in left eye (06/2023) and was placed on blood pressure medication - follows Abraham Moore and Dr. Bansal. Chronic SI joint pain History of gastroesophageal reflux (GERD) Meniere's disease Osteoporosis Pt not sure if Osteoporosis or Osteoarthritis History of diverticulitis Surgical History History of surgery dequervains, right History of endoscopy upper History of arthroscopy of left knee History of colonoscopy History of gynecologic surgery ovaries removed - lost 4 units blood. no hx blood transfusion. History of hysterectomy History of kyphoplasty Family History (Updated 06/20/25 @ 12:04 by Adrian Leger RN) Daughter Family history of reaction to anesthesia wakes up crying Social History Smoking Status: Never smoker Do You Dip or Chew Tobacco: No; Hx Alcohol Use: No Hx Substance Use: No Preferred Language: Tuvaluan Communication Ability: Effective Fraud Prevention Analyst Required: No Beliefs That Will Affect Care: None marital status: Current Living Situation: Spouse Current Living Situation Comment: Tr How many Children do You have: 0 Other Information That Helps Us Care for You: No Feels Safe at Home: Yes Safety Concerns: Feels Safe At This Time Assistive Devices: Other Review of Systems Review of Systems: All systems reviewed & are unremarkable except as noted in HPI & below Physical Exam Constitutional: WD/WN, vitals as above well developed and + obese Neck: trachea midline, no thyromegaly Respiratory: normal respiratory effort, lungs clear to auscultation Cardiovascular: Rate/Rhythm: regular rate and regular rhythm Heart Sounds: normal S1 and normal S2; no murmur Vessels: no JVD Extremities: no edema Chest (Breasts): Additional Comments: Palpation of the chest wall with reproducible tenderness abscess under right breast approx 2 inch diameter and + drainage Gastrointestinal (Abdomen): normal bowel sounds, soft, nontender, no hepatosplenomegaly Neurologic: PERRL, EOMI, accommodation nl, no face palsy, no dysarthria Results & Data Vital Signs (Past 12 Hours) Vital Signs Temp Pulse Pulse Resp BP BP Pulse Ox 08/07/25 12:28 82 19 124/64 95 08/07/25 09:00 81 16 134/79 94 08/07/25 07:07 85 16 95 08/07/25 07:01 77 08/07/25 07:00 83 16 136/80 95 08/07/25 07:00 95 08/07/25 06:41 36.8 C 84 18 160/85 H 98 O2 Del Method 08/07/25 12:28 Room Air 08/07/25 09:00 Room Air 08/07/25 07:07 Room Air 08/07/25 07:01 08/07/25 07:00 Room Air 08/07/25 07:00 Room Air 08/07/25 06:41 Room Air Laboratory Results Cardiac Enzymes 08/07/25 Range/Units 06:58 AST 18 (13-39) U/L Troponin I High Sens 8.0 (0-14) pg/ml B-Natriuretic Peptide 34 (0-100) pg/ml Coagulation 08/07/25 Range/Units 06:58 PT 10.5 (9.0-12.0) Seconds APTT 29 (21-31) Seconds B-Natriuretic Peptide 34 (0-100) pg/ml CBC 08/07/25 Range/Units 06:58 WBC 9.07 (4.8-10.8) K/ul RBC 5.40 (4.20-5.40) M/uL Hgb 15.5 (12.0-16.0) g/dl Hct 49.9 H (37.0-47.0) % Plt Count 320 (130-400) K/uL Neut # (Auto) 6.11 (1.40-6.50) K/uL Lymph # (Auto) 1.81 (1.20-3.40) K/uL Blair # (Auto) 0.90 H (0.11-0.59) K/uL Eos # (Auto) 0.17 (0.00-0.50) K/uL Baso # (Auto) 0.05 (0.00-0.20) K/uL Comprehensive Metabolic Panel 08/07/25 Range/Units 06:58 Sodium 139 (136-145) mmol/L Potassium 4.0 (3.5-5.1) mmol/L Chloride 101 (98-107) mmol/L Carbon Dioxide 29 (21-32) mmol/L BUN 17 (6-23) mg/dl Creatinine 0.77 (0.6-1.2) mg/dl Glucose 130 H (70-99(Fasting)) mg/dl Calcium 9.7 (8.6-10.3) mg/dl AST 18 (13-39) U/L ALT 23 (7-52) U/L Alkaline Phosphatase 85 (34-104) U/L Total Protein 8.0 (6.0-8.3) gm/dl Albumin 4.6 (3.4-5.0) gm/dl Intake and Output 08/06/25 08/07/25 08/07/25 22:59 06:59 14:59 Other: Weight 131 kg 131 kg Weight Measurement Method Built in [facility] Patient Weight 08/08/25 06:59 Weight 131 kg Diagnostic Findings Telemetry reviewed: NSR, no arrhythmias EKG reviewed: NSR with mild T wave inversion in lead III. No acute ischemic changes. Echo reviewed: Normal LVEF at 55-60% Grade I diastolic dysfunction Trace TR No pulm hypertension Chest X-Ray 08/07/25 07:07 EXAM: XR chest 1V portable CLINICAL HISTORY: Chest and back pain TECHNIQUE: An X-ray image of the chest is obtained in AP projection. COMPARISON: 11/08/2023 FINDINGS: Pulmonary Parenchyma: Lungs are clear bilaterally. No evidence of consolidation, collapse, or focal opacities. No pulmonary nodules are identified. No evidence of right pleural effusion or pleural thickening. Obscuration of the left costophrenic angle could be a prominent epicardial fat pad. Heart and Mediastinum: Mildly enlarged cardiac shadow. No mediastinal widening or masses. No hilar or mediastinal lymphadenopathy. Bony Thorax: Bony thorax appears intact without fractures or deformities. Soft Tissues: Soft tissues overlying the chest wall are unremarkable. IMPRESSION: 1. Obscuration of the left costophrenic angle could be a prominent epicardial fat pad. 2. No acute cardiopulmonary abnormalities are identified. 3. No interval changes. Electronically signed by Abdifatah Carreon 08-07-2025 08:26 AM Chest CTA 08/07/25 07:08 CT ANGIOGRAM OF THE CHEST CLINICAL HISTORY: Dyspnea. Chest pain. Back pain. COMPARISON STUDY: Chest CT dated 11/08/2023. Chest x-ray dated 08/07/2025. TECHNIQUE: Following the IV administration of 112 cc of Optiray 320, CT angiogram of the chest was performed from the upper abdomen to the thoracic inlet utilizing the pulmonary embolus protocol. Images are reviewed in the axial, sagittal, and coronal planes. 3-D MIPS images are created and assessed. IV contrast was administered without complication. A dose lowering technique was utilized adhering to the principles of ALARA. The examination is degraded by large body habitus, and by streak artifact from the body wall abutting the CT gantry. There is also motion artifact. CT DOSE: 924.56 mGy.cm FINDINGS: Thyroid: Enlarged and heterogeneous. A 3 cm nodule is seen in the left lobe. Thoracic aorta: The thoracic aorta is normal in caliber and demonstrates bovine variant arch anatomy. No dissection is seen. Pulmonary vasculature: The pulmonary trunk is normal in caliber. There are no filling defects identified in main, lobar, or proximal segmental pulmonary branches to suggest pulmonary embolus. Heart: The heart is enlarged noting trace pericardial effusion. Lungs and pleural spaces: Evaluation of the lung parenchyma is degraded by motion artifact. No airspace consolidation or pleural effusion is identified. Scarring/atelectasis is noted at the lung bases. The trachea and central airways are clear. There are scattered calcified granulomas. Mediastinum: There is no mediastinal lymphadenopathy. Chloe: Clear. Axillae: There is no axillary lymphadenopathy. Upper abdomen: Cholecystectomy clips are noted. Partially visualized upper abdominal viscera is otherwise grossly unremarkable. Skeletal structures: The skeletal structures are osteopenic. No lytic or blastic bony lesions are seen. A mild chronic superior endplate compression deformity of L1 is unchanged. IMPRESSION: 1. Streak and motion degraded examination. 2. There is no evidence of central pulmonary embolus in the main, lobar, or proximal segmental pulmonary arteries. Evaluation of the peripheral branches is significantly degraded by streak and motion artifact. 3. There is no airspace consolidation or pleural effusion. 4. Cardiomegaly. 5. There is a 3 cm left lobe thyroid nodule. If not previously performed a thyroid ultrasound is recommended in follow-up. 6. Additional findings as above. ACT 112: Negative or not required by law. Electronically signed by: Cristino Adan M.D. 08/07/2025 9:04 AM Prior outpatient data reviewed: November 24, 2023 TTE Interpretation Summary (as per Dr. Ordonez): The LV wall thickness is mildly increased (concentric). The left ventricular wall motion is normal. The qualitative LV ejection fraction is 60-64% (normal). The left v entricular diastolic function is mildly abnormal (grade I). No significant valvular disease is present. Medications Administered Current Inpatient Medications Acetaminophen (Acetaminophen 325 Mg Tab) 650 mg PO Q4H PRN PRN Reason: Pain or Fever Stop: 09/06/25 10:35 Al Hydrox/Mg Hydrox/Simethicone (Aluminum/Magnesium Susp 30 Ml Udc) 15 ml PO Q4H PRN PRN Reason: Dyspepsia Stop: 09/06/25 10:35 Artificial Tears (Artificial Tears) 1 drops OP BID [facility] Stop: 09/06/25 20:59 Aspirin (Aspirin 81 Mg Ectab) 81 mg PO QPM [facility] Stop: 09/06/25 20:59 Calcium Carbonate (Calcium Carbonate 1250mg Tab) 1 tab PO QAM [facility] Stop: 09/07/25 08:59 Cephalexin HCl (Cephalexin 500 Mg Cap) 500 mg PO QID [facility]; Protocol Stop: 08/14/25 12:59 Last Admin: 08/07/25 12:10 Dose: 500 mg Clobetasol Propionate (Clobetasol Propionate 0.05% Cream 15 Gm Tube) 1 appln TOP DAILY PRN PRN Reason: Skin Irritation Stop: 09/06/25 10:35 Clobetasol Propionate (Clobetasol Propionate 0.05% Oint 15 Gm Tube) 1 appln EXT DAILY PRN PRN Reason: skin irritation Stop: 09/06/25 10:35 Cyanocobalamin (Cyanocobalamin (B-12) 2,500 Mcg Tablet) 5,000 mcg SL [id number] [facility] Stop: 09/08/25 08:59 Enoxaparin Sodium (Enoxaparin Inj 40 Mg/0.4 Ml Syr) 40 mg SQ QAM [facility] Stop: 09/07/25 08:59 Furosemide (Furosemide 20 Mg Tab) 20 mg PO QAM [facility] Stop: 09/07/25 08:59 Ketorolac Tromethamine (Ketorolac Tromethamine 15 Mg/Ml Vial) 15 mg IV Q6H PRN PRN Reason: Pain Stop: 08/12/25 11:43 Last Admin: 08/07/25 13:47 Dose: 15 mg Lorazepam (Lorazepam 0.5 Mg Tab) 0.5 mg PO TID PRN PRN Reason: Anxiety Stop: 09/06/25 10:35 Losartan Potassium (Losartan Potassium 25 Mg Tab) 25 mg PO HS [facility] Stop: 09/06/25 20:59 Multivitamins (Multivitamin Tab) 1 tab PO DAILY [facility] Stop: 09/07/25 08:59 Ondansetron HCl (Ondansetron Inj 2 Mg/Ml 2 Ml Vial) 4 mg IV Q6H PRN PRN Reason: Nausea Stop: 09/06/25 10:35 Polyethylene Glycol (Polyethylene (Miralax) 17 Gm Pack) 17 gm PO DAILY PRN PRN Reason: Constipation Stop: 09/06/25 10:35 Spironolactone (Spironolactone 12.5 Mg Tab) 12.5 mg PO QAM [facility] Stop: 09/07/25 08:59 Vitamin D (Cholecalciferol 125 Mcg (5,000 Units) Tab) 250 mcg PO QAM [facility] Stop: 09/07/25 08:59 PG Care Time/CCT Total # of Minutes Spent Total Time Spent with Patient: Total time spent is greater than 50% in coordination of care (as documented) at patient's floor/unit and/or counseling patient: 60 minutes Coding Level of Care Code 59443 OFFICE CONSULT LVL Diagnoses Chest pain, unspecified type R07.9 Chest pain type: unspecified Infection of breast, right N61.0 (1) Chest pain Chest pain type: unspecified Qualified Code(s): R07.9 - Chest pain, unspecified
[2025-08-07] MEDS: KETOROLAC TROMETHAMINE 15 MG/ML VIAL IV PRN (13:47)
--- NOTE | 2025-08-07 15:33 | Ultrasound Report ---
THYROID ULTRASOUND CLINICAL HISTORY: 3 cm L lobe nodule noted on chest CTA COMPARISON STUDY: Chest CT of 08/07/2025 TECHNIQUE: Sonography of the thyroid gland was performed. FINDINGS: Right thyroid lobe measures 4.7 x 2.0 x 2.2 cm. There are a few small subcentimeter right t hyroid lobe nodules without suspicious characteristics, largest measuring 4 mm. Left thyroid lobe measures 4.7 x 2.4 x 2.4 cm. There is a 2.6 cm greatest dimension rounded heterogen eous solid nodule mid left thyroid lobe. This is a TI-RADS 3 nodule for which ultrasound-guided FNA i s recommended over 2.5 cm. No other significant thyroid nodule seen. IMPRESSION: Ultrasound-guided FNA is recommended for the 2.6 cm left thyroid lobe nodule. ACT 112: Negative or not required by law. Electronically signed by: Mir Gallagher M.D. 08/07/2025 3:32 PM
[2025-08-07] MEDS ORDERED: LOSARTAN POTASSIUM 25 MG TAB PO SCH (16:30)
[2025-08-07] MEDS: ACETAMINOPHEN 325 MG TAB PO PRN (20:31)
[2025-08-07] MEDS: ASPIRIN 81 MG ECTAB PO SCH (20:32)
[2025-08-07] MEDS: LORazepam 0.5 MG TAB PO PRN (20:32)
[2025-08-07] MEDS: LOSARTAN POTASSIUM 25 MG TAB PO SCH (20:33)
[2025-08-07] MEDS: ARTIFICIAL TEARS OP SCH (20:47)
[2025-08-08 08:26] VITALS: RESP 16; TEMP 97.5; O2SAT 97
[2025-08-08] MEDS: SPIRONOLACTONE 12.5 MG TAB PO SCH (08:54)
[2025-08-08] MEDS: FUROSEMIDE 20 MG TAB PO SCH (08:54)
[2025-08-08] MEDS: MULTIVITAMIN TAB PO SCH (08:55)
[2025-08-08] MEDS: CHOLECALCIFEROL 125 MCG (5,000 UNITS) TAB PO SCH (08:55)
[2025-08-08] MEDS: ENOXAPARIN INJ 40 MG/0.4 ML SYR SQ SCH (08:56)
[2025-08-08] MEDS: CALCIUM CARBONATE 1250MG TAB PO SCH (08:56)
--- NOTE | 2025-08-08 09:47 | Discharge Summary ---
"Discharge Summary Date of Service August 08, 2025 Principal Dx & Hospital Course #1 = Principal Diagnosis (1) Chest pain: (2) Infection of breast, right: (3) Thyroid nodule: (4) HTN (hypertension): Plan Cher is a pleasant 65-year-old woman with past medical history of hypertension, GERD, Mnire's disease, osteoporosis, bilateral sacroiliitis, and chronic SI joint pain. A week prior to admission she was started on Bactrim for an infection/small abscess under her right breast. She then developed musculoskeletal upper back pain that progressed into central chest pain with associated shortness of breath. Dyspnea is worse when lying supine and chest pain is exacerbated by movement. Workup in ED overall unremarkable. She was admitted for further cardiac workup. #Chest pain | Upper back pain Chest CTA on admission without evidence of PE, consolidation, or pleural effusion Troponin normal at 8.0, BNP normal at 34 EKG with NSR, no ischemic changes Echo: EF 55-60%. Grade 1 diastolic dysfunction. trace tricuspid regurg. Cardiology consulted --> suspect pain is not cardiac in origin. Did offer stress test but patient refused. #Right breast infection started on Bactrim outpatient. Appears to be improving on exam Completed 5 days of Bactrim outpatient, given it correlates with her symptoms stop on discharge & Keflex 500mg QID for 5 days to complete course. Follow up w/ PCP for further care following abx course. #Thyroid nodule 3 cm left lobe thyroid nodule incidentally noted on chest CTA TSH WNL Thyroid US: 2.6cm left thyroid nodule, recommend biopsy Discussed w/ pt --> she has upcoming appt w/ ENT & plans to discuss there #HypertensionBP well-controlled. Continue losartan 25 mg HS, Lasix 20 mg daily, spironolactone 12.5 mg daily #Vitamin D deficiencycontinue cholecalciferol supplement daily #Vitamin B-12 deficiencycontinue cyanocobalamin 3 times weekly #Anxietycontinue home lorazepam 0.5 mg 3 times daily as needed updated at bedside at time of discharge Admission HPI Per Admitting Provider Cher is a pleasant 65-year-old woman with past medical history of hypertension, GERD, Mnire's disease, osteoporosis, bilateral sacroiliitis, and chronic SI joint pain. She presented from home with chest and back pain. At the time of my exam, the patient was lying in bed in no acute distress with her present at bedside. She states last week she began having pain under her right breast and was started on Bactrim on Wednesday 08/01 for an infection/small abscess. Then on 08/03, she began having pain in her shoulder blade area and attributed this to musculoskeletal related pain. This progressed into her central chest on Sunday 08/05 and has persisted since then. Her chest pain is exacerbated by movement/activity. She also has associated dyspnea that is worse when lying supine. She has never experienced this type of pain previously. She denies trauma, injury, or inciting event. Denies fever, chills, body aches. Denies headache, nausea, vomiting, abdominal pain, lower back pain, urinary symptoms. Patient reports that she did not take her regular morning medications today, will order now; no recent change in medications. She does not use supplemental oxygen at baseline. No CPAP at night. Vitals on admission are stable. Labs on admission are overall unremarkable. No leukocytosis. No anemia. Electrolytes are normal. Renal function is normal. LFTs are normal. Troponin normal at 8.0. BNP normal at 34. Procalcitonin negative at 0.09. UA negative. Chest CTA on admission is somewhat limited due to streak and motion but reveals no evidence of PE, consolidation, or pleural effusion; incidentally notes a 3 cm left lobe thyroid nodule (thyroid ultrasound recommended). CXR notes obscuration of the left costophrenic angle could be a predominant epicardial fat pad, otherwise no acute abnormalities identified. We discussed code status, patient wishes to be a full code. Discharge Exam Constitutional WD/WN, vitals as above Eyes PERRL, conjunctivae normal, anicteric sclerae Respiratory normal respiratory effort Skin Small 2 cm nontender, erythematous region with minor ulceration in the center without purulent drainage is present in the right anteroinferior breast area Neurologic PERRL, EOMI, accommodation nl, no face palsy, no dysarthria Psychiatric A+Ox3, euthymic affect Discharge Plan Discharge Items Patient Disposition: Home - Self-Care Reason For Visit: CHEST PAIN Discharge Diagnosis: Chest pain Condition on Discharge: Good Activity: Resume your previous activity Non-emergency contact: Primary Care Provider Call non-emergency contact if: you have any medication questions, your symptoms worsen and you have a fever Follow-up/Referrals: Parish Perez [Primary Care Provider] - (Please call your primary care provider to schedule a hospital follow-up appointment within 7-10 days) Diet: Regular Addtl Attending Provider Instructions: Mrs. Newell, You were recently hospitalized secondary to chest pain. The Bactrim you were taking has been stopped and you had resolution of your symptoms. You were evaluated by the crusher who deemed your chest pain not related to your heart. Please see recommendations below regarding your discharge. Please do not take Bactrim. Keflex 500mg four times daily has been sent in for y ou as an alternative. Your next dose will be around 3pm this afternoon. For your breast infection: please keep area clean and dry. Cover open area with bandage and change daily. You were found to have a 2.6 cm Thyroid nodule - please follow up with your ENT next week regarding this at your already scheduled appointment. You may resume the remainder of your outpatient medications. Follow up with cardiology for continued care. Please follow up with your PCP within 1-2 weeks of discharge. Best of luck! Wendie Morrow PA-C Pending Studies at Discharge: No Stand-Alone Forms: My [facility] [employer], Smoking Cessation Medications and DC Order Prescriptions: New cephalexin 500 mg Capsule 500 mg PO QID Qty: 20 0RF Continued multivitamin [Daily Multi-Vitamin] Tablet 1 tab PO DAILY aspirin 81 mg tablet,delayed release (DR/EC) 81 mg PO QPM calcium carbonate [Calcium 600] 600 mg calcium (1,500 mg) tablet 1,200 mg PO QAM lorazepam 0.5 mg tablet 0.5 mg PO TID Patient Comments: take 0.5 mg one at supper time and one at bedtime, can take it three times a day but I don't need that cholecalciferol (vitamin D3) 125 mcg (5,000 unit) capsule 10,000 unit PO QAM doxycycline hyclate 50 mg capsule 50 mg PO UD PRN (Reason: dermatology instruction/face ) clobetasol 0.05 % cream 1 applic TOPICAL UD PRN (Reason: Skin Irritation) Patient Comments: alternate as needed between cream and ointment acetaminophen 500 mg Tablet 500 mg PO UD PRN (Reason: aches and pains) clobetasol 0.05 % ointment 1 applic TOPICAL UD PRN (Reason: skin irritation ) Patient Comments: alternate as needed between cream and ointment losartan 100 mg tablet 25 mg PO QDD cyclosporine [Restasis] 0.05 % dropperette 1 drp OPB BID cyanocobalamin (vitamin B-12) [Vitamin B-12] 5,000 mcg Tablet, Sublingual 5,000 mcg SUBLINGUAL 3XWK Patient Comments: mon, wed and fri lidocaine 5 % adhesive patch,medicated 1 patch transdermal UD PRN (Reason: Pain) magnesium sulfate (bulk) [Epsom Salt] 100 % Crystals 1 applic TOPICAL UD PRN (Reason: Pain) Patient Comments: epsom salt gel spironolactone 25 mg Tablet 12.5 mg PO QAM Patient Comments: have to take it with the lasix furosemide [Lasix] 20 mg Tablet 20 mg PO QAM ibuprofen [Advil] 200 mg Tablet 200 mg PO UD PRN (Reason: Pain) zinc 50 mg Tablet 50 mg PO QAM Patient Comments: zinc gummies Probiotic 3 billion cell Capsule 0 mmu cells PO QAM Rx Instructions: administer with a meal psyllium Packet 1 packet PO UD PRN (Reason: Constipation) Rx Instructions: mix into at least 8 oz of water or juice before administering fluconazole 150 mg tablet 150 mg PO UD PRN (Reason: yeast infection) Discontinued sulfamethoxazole-trimethoprim 800-160 mg tablet 0 tab PO UD Patient Comments: 08/07-last took on 08/06 at noon. Stopped when issues started. [place] great until she started the antibiotic and wanted it added to her allergy list. Pt read she shouldnt take antibiotic with losartan and wants to know why provider/pharmacy gave her the medication Discharge Orders: Discharge Order (Routine); Ordered 08/08/25 Ordered By: Wendie Morrow Admission Data Admit Date/Time: 08/07/25 10:04 Attending Provider: Juaquin Villar Admit Provider: Benigno Pereira Primary Care Provider: Parish Perez Other Providers: Benigno Thakkar Thomas E. Other Interventions: Discharge Summary Assessment (RN) Last Done: 08/08/25 10:36 Hospital Stay Data Consultations 08/07/25 09:16 ED Decision to Admit Stat 08/07/25 11:28 Consult Cardiology Routine Diagnostic Imagining Performed 08/07/25 07:08 CT angio chest PE protocol Stat 08/07/25 11:43 US thyroid Routine Pending Results Patient Have Any Pending Studies at Discharge: No Discharge Instructions Given to Patient (Per Discharging Provider) Mrs. Newell, You were recently hospitalized secondary to chest pain. The Bactrim you were taking has been stopped and you had resolution of your symptoms. You were evaluated by the crusher who deemed your chest pain not related to your heart. Please see recommendations below regarding your discharge. Please do not take Bactrim. Keflex 500mg four times daily has been sent in for you as an alternative. Your next dose will be around 3pm this afternoon. For your breast infection: please keep area clean and dry. Cover open area with bandage and change daily. You were found to have a 2.6 cm Thyroid nodule - please follow up with your ENT next week regarding this at your already scheduled appointment. You may resume the remainder of your outpatient medications. Follow up with cardiology for continued care. Please follow up with your PCP within 1-2 weeks of discharge. Best of luck! Wendie Morrow PA-C Supervising Physician Co-Signing Physician Notes The patient was not seen by me. The chart was reviewed. Case discussed with RIYA Waite. Agree with assessment and plan Total Time Total Time Spent Total Time Spent (In Minutes): 45 Total Time Includes: Examination of the Patient, Discharge Planning, Medication Reconciliation, Communication With Other Providers and Other Coding Level of Care Code 49496 INP/OBS DISCH >30 MIN Diagnoses Chest pain, unspecified type R07.9 Chest pain type: unspecified Infection of breast, right N61.0 Thyroid nodule E04.1 HTN (hypertension) I10"
[2025-08-08 10:37] VITALS: BP 126/83; PULSE 65
--- NOTE | 2025-08-08 10:44 | Cardiology Progress Note ---
Date of Service August 08, 2025 Assessment & Plan (1) Atypical chest pain: (2) Infection of breast, right: Plan No evidence of acute coronary syndrome. Chest discomfort has resolved likely noncardiac. BP appears well-controlled. Continue current medications cleaning aspirin, losartan, spironolactone, and furosemide. Patient declined stress testing earlier today. Outpatient cardiology follow-up as scheduled. Benigno Thakkar DO, [facility] Admission and Anticipated Discharge Date Admission Date: August 07, 2025 Subjective 65-year-old female seen examined at bedside. Declined dobutamine stress echo this morning. Chest discomfort has resolved. No dysrhythmia on telemetry. Requesting discharge if possible. Review of Systems Review of Systems: All systems reviewed & are unremarkable except as noted in Subjective Physical Exam Constitutional: well nourished and + obese Respiratory: no respiratory distress, no labored breathing and no retractions Auscultation: no crackles, no rales, no rhonchi and no wheezes Cardiovascular: Rate/Rhythm: regular rate and regular rhythm Heart Sounds: normal S1 and normal S2; no murmur Vessels: radial pulses present; no JVD Extremities: no edema Gastrointestinal (Abdomen): Inspection/Auscultation: normal bowel sounds; abdomen not distended Percussion/Palpation: abdomen soft; abdomen nontender, no guarding and abdomen not rigid Neurologic: CN's II-XI intact bilaterally and moves all extremities; no focal motor deficits Results & Data Vital Signs (Past 12 Hours) Vital Signs Temp Pulse Pulse Pulse Resp BP BP 08/08/25 10:36 36.4 C L 65 82 16 126/83 119/78 08/08/25 08:26 36.4 C L 82 16 119/78 08/08/25 07:26 75 08/08/25 02:55 36.6 C 70 18 93/56 L Pulse Ox O2 Del Method 08/08/25 10:36 97 08/08/25 08:26 97 Room Air 08/08/25 07:26 08/08/25 02:55 94 Room Air Laboratory Results Cardiac Enzymes 08/07/25 Range/Units 14:42 Troponin I High Sens 3.3 D (0-14) pg/ml Intake and Output 08/07/25 08/08/25 08/08/25 22:59 06:59 14:59 Intake Total 720 / 720 Balance 720 / 720 Intake: Oral 720 / 720 Other: Other Intake Source npo Weight 131.4 kg 131.4 kg Weight Measurement Method [facility] Weight 08/09/25 06:59 Weight 131.4 kg PG Care Time/CCT Total # of Minutes Spent Total Time Spent with Patient: Total time spent is greater than 50% in coordination of care (as documented) at patient's floor/unit and/or counseling patient: Coding Level of Care Code 20178 SUB INP/OBS CARE 3/50MIN Diagnoses Atypical chest pain R07.89 Infection of breast, right N61.0
[2025-08-09] MEDS ORDERED: CYANOCOBALAMIN (B-12) 2,500 MCG TABLET SL SCH (09:00)
== END 2025-08-08 11:15 | disposition home or self-care (01) ==
LOC: EDINP 06:37 → ED 06:37 → SUATTDRO 10:04 → EDINP 10:36 → 2N 16:55